=== PATIENT | male | born 1930 | race Caucasian/White ===

== ENCOUNTER 2017-07-16 10:29 | Inpatient (IN) | payer MEDICARE, BC ==
[2017-07-16] MEDS ORDERED: Polyethylene Glycol 3350 Powder 17 GM Packet PO PRN (11:34)
--- NOTE | 2017-07-16 11:56 | PCM.HP ---
H&P History of Present Illness - General Date of Service: 07/16/17 Admit Problem/Dx: Admission Diagnosis/Problem Admission Diagnosis/Problem Acute systolic congestive heart failure Source of Information: Patient, Family, Old Records, Provider History Limitations: Reports: No Limitations - History of Present Illness Initial Comments - Free Text/Narative: Patient is an 87-year-old male remarkably independent who had a heart attack back in 2016 and has had shortness of breath since then. Over the last couple of months his exertional shortness of breath and at rest shortness of breath have worsened considerably. Over the last month he has had a productive cough which over the last 2 days has grown worse with white sputum. He's had no fevers , no chills, no sweats. His cough actually is better today than yesterday. He's been treated with a course of azithromycin and a course of Levaquin in the last month. He has good days and bad days. He [facility] but over the last month has been doctoring at [facility] with a nurse practitioner and has a baseline abnormal chest x-ray. He's had episodes of dizziness and orthostatic hypotension. When he wakes up in the morning he feels pretty good but after taking his pills his blood pressure would drop to systolic blood pressures in the 70s and 80s and so they've been making adjustments to his medications at the clinic. He's had lisinopril stopped, Toprol-XL decreased from 50-12.5 mg daily, and has decreased his Lasix from 80 to 40 twice a day. He was in the clinic again this morning with similar complaints and was tachycardic with heart rates ranging from 100 to 140s and I was contacted by the mid-level provider who saw him and asked to admit him for further workup and evaluation of his shortness of breath. Because the patient doctors both at the [facility] and recently at [facility] our medication list is incorrect as well as the problem list. We are working on getting records from the [facility]. Past medical history: (May be incomplete pending records from [facility]) History of ST elevation myocardial infarction in February 2015 Hx chronic atrial fibrillation, taken off anticoagulation sometime in the past couple of years and only on aspirin daily due to bleeding risk and the patient' s refusal for transfusions due to his scientology beliefs. Severe systolic congestive heart failure with echo in the past showing 20% EF per patient and son. April 2015 echo in [facility] chart shows ejection fraction of 20% and severe diffuse hypokinesis. Hypothyroidism DM 2, diet controlled. CKD stage III. Left carotid artery partial occlusion, unknown severity, last ultrasound result here from 2013 showed moderate elevation of peak systolic velocity of external carotid arteries bilaterally and marked atherosclerotic vascular disease change predominantly distal common carotid bulb regions and proximal internal carotid arteries bilaterally. [facility] would not do the patient's hernia repair without first doing carotid endarterectomy. Patient refused because of concerns of stroke. Right inguinal hernia. BPH. Social Hx: Patient is a Jain and will not accept blood transfusion. He doctors at the [facility] about once a month and locally has been doctoring this month with [facility]. He would like to continue to follow with [facility] on discharge. He is a from the [place], smoked for 1 year in his lifetime and quit, drinks 1 ounce of whiskey a day. He is and he and his live in [place]. His son is here with him today. Family Hx: Patient's mother from stomach cancer age of 37. The patient's father at 67 from prostate cancer. The patient was one of 6 more days and his 5 brothers have all . All of them had heart disease and bypass surgery , and one was on kidney dialysis. - Related Data Home Medications: Home Meds Aspirin [Halfprin] 81 mg PO DAILY 07/16/17 [History] Furosemide [Lasix] 40 mg PO BID 07/16/17 [History] Lisinopril 2.5 mg PO BEDTIME 07/16/17 [History] Metoprolol Succinate [Toprol Xl] 12.5 mg PO BEDTIME 07/16/17 [History] Omeprazole 20 mg PO DAILY 07/16/17 [History] Sildenafil Citrate [Sildenafil] 100 mg PO ASDIRECTED PRN 07/16/17 [History] Tamsulosin [Flomax] 0.8 mg PO BEDTIME 07/16/17 [History] H&P Review of Systems - Review of Systems: Review Of Systems: See Below General: Reports: No Symptoms HEENT: Reports: No Symptoms Pulmonary: Reports: Shortness of Breath, Cough, Sputum Cardiovascular: Reports: Dyspnea on Exertion, Orthopnea, Lightheadedness, Blood Pressure Problem Gastrointestinal: Reports: No Symptoms Genitourinary: Reports: Other (chronic slow stream, [facility] Musculoskeletal: Reports: No Symptoms Skin: Reports: Bruising Psychiatric: Reports: No Symptoms Neurological: Reports: Dizziness (with position changes.) Hematologic/Lymphatic: Reports: No Symptoms Immunologic: Reports: No Symptoms Exam - Exam Exam: See Below - Exam General: Alert, Oriented, Cooperative HEENT: PERRLA, Conjunctiva Clear, Mucosa Moist & [place], Posterior Pharynx Clear Neck: Supple Lungs: Decreased Breath Sounds, Crackles, Rhonchi Cardiovascular: Irregular Rhythm, Tachycardia GI/Abdominal Exam: Normal Bowel Sounds, Soft, Non-Tender, No Distention Back Exam: Normal Inspection Extremities: Pedal Edema (1+ edema.) Skin: Warm, Dry, Intact Neuro Extensive - Mental Status: Alert, Oriented x3, Normal Mood/Affect, Normal Cognition - Patient Data Lab Results Last 24 hrs: At [facility], labs and x-ray were done and chest x-ray to my reading appears unchanged from a month ago. It's grossly abnormal with what looks like a large right-sided pleural effusion, small left-sided pleural effusion, fibrosis changes. Essentially [facility] readings since 2017 show a significant increased pleural parenchymal changes at the left lung base and continue pleural parenchymal changes at the right lung base, with a differential being pneumonia, pleuritis, CHF, pulmonary emboli, mesothelioma. Also calcified plaques compatible with asbestosis. Essentially nondiagnostic. Patient's baseline creatinine is about 1.7-1.8 and today glucose was 182, sodium 134, potassium 4.3, chloride 95, CO2 28, BUN 41, creatinine 1.8, calcium 9.0, white count 7.1, hemoglobin 11.6 which is at the patient's typical baseline , platelets 208. - Problem List (1) SOB (shortness of breath) SNOMED Code(s): 901046655 ICD Code: R06.02 - SHORTNESS OF BREATH Status: Acute Current Visit: Yes Problem Details: Worsening over last month, failed 2 courses of outpatient antibiotic therapy. Multifactorial, unclear etiology at this time. I'm going to get an EKG, order an echo, get a CT scan of the chest to see how much fluid is present. (2) Chronic systolic heart failure SNOMED Code(s): 081148379 ICD Code: I50.22 - CHRONIC SYSTOLIC (CONGESTIVE) HEART FAILURE Status: Acute Current Visit: Yes Problem Details: We will repeat echo tomorrow. (3) Atrial fibrillation with RVR SNOMED Code(s): 266837830239788 ICD Code: I48.91 - UNSPECIFIED ATRIAL FIBRILLATION Status: Acute Current Visit: Yes Problem Details: Digoxin loading, then daily. Discussed benefit of digoxin which is just patients feel better in CHF and rate control without hypotension, but has no mortality benefit and may actually shorten life compared to beta blockers. Patient and son aware. (4) CKD stage 3 due to type 2 diabetes mellitus SNOMED Code(s): 405102705482 ICD Code: E11.22 - TYPE 2 DIABETES MELLITUS W DIABETIC CHRONIC KIDNEY DISEASE ; N18.3 - CHRONIC KIDNEY DISEASE, STAGE 3 (MODERATE) Status: Acute Current Visit: Yes Problem Details: Monitor daily. Will need to be cautious with digoxin. (5) Diabetes mellitus type 2 in nonobese SNOMED Code(s): 980378213 ICD Code: E11.9 - TYPE 2 DIABETES MELLITUS WITHOUT COMPLICATIONS Status: Acute Current Visit: Yes Problem Details: QID blood sugar checks. (6) Hypothyroid SNOMED Code(s): 65845022 ICD Code: E03.9 - HYPOTHYROIDISM, UNSPECIFIED Status: Acute Current Visit : Yes Problem Details: Continue outpatient dose. (7) BPH (benign prostatic hyperplasia) SNOMED Code(s): 061493864 ICD Code: N40.0 - BENIGN PROSTATIC HYPERPLASIA WITHOUT LOWER URINRY TRACT SYMP Status: Acute Current Visit: Yes Problem Details: With CKD, watch for signs of obstructive uropathy as can worsen renal function. (8) DVT prophylaxis SNOMED Code(s): 198838465, 276803375 ICD Code: HXD5306 - Status: Acute Current Visit: Yes Problem Details: Lovenox, SCDs, ambulation as tolerated. Problem List Initiated/Reviewed/Updated: Yes Orders Last 24hrs: Active Orders 24 hr Category Date Time Status Patient Status [ADT] Routine ADT 07/16/17 11:34 Ordered Blood Glucose Check, Bedside [RC] QIDACANDBED Care 07/16/17 11:34 Ordered Cardiac Monitoring [RC] CONTINUOUS Care 07/16/17 11:36 Ordered Height and Weight [RC] DAILY Care 07/16/17 11:34 Ordered Intake and Output [RC] QSHIFT Care 07/16/17 11:36 Ordered Notify Provider Vital Signs [RC] ASDIRECTED Care 07/16/17 11:36 Ordered Oxygen Therapy [RC] PRN Care 07/16/17 11:34 Ordered Pulse Oximetry [RC] PRN Care 07/16/17 11:36 Ordered RT Aerosol Therapy [RC] ASDIRECTED Care 07/16/17 11:38 Ordered Up With Assistance [RC] ASDIRECTED Care 07/16/17 11:34 Ordered VTE/DVT Education [RC] Per Unit Routine Care 07/16/17 11:34 Ordered Vital Signs [RC] Q4H Care 07/16/17 11:34 Ordered Respiratory Care Assess and Treatment [CONS] Routine Cons 07/16/17 11:34 Ordered 2 Gram Sodium Diet [DIET] Diet 07/16/17 Breakfast Ordered Chest wo Cont [CT] Routine Exams 07/16/17 11:39 Ordered CBC WITH AUTO DIFF [HEME] Stat Lab 07/16/17 11:34 Ordered COMPREHENSIVE METABOLIC PN,CMP [CHEM] Stat Lab 07/16/17 11:34 Ordered CULTURE SPUTUM + SMEAR [RM] Stat Lab 07/16/17 11:34 Ordered MAGNESIUM [CHEM] Stat Lab 07/16/17 11:34 Ordered PHOSPHORUS [CHEM] Stat Lab 07/16/17 11:34 Ordered TROPONIN I [CHEM] Stat Lab 07/16/17 11:34 Ordered Acetaminophen [Tylenol] Med 07/16/17 11:34 Ordered 650 mg PO Q4H PRN Albuterol [Proventil Neb Soln] Med 07/16/17 11:34 Ordered 2.5 mg NEB Q2H PRN Enoxaparin [Lovenox] Med 07/16/17 11:45 Ordered 30 mg SUBCUT Q24H Polyethylene Glycol 3350 [MiraLAX] Med 07/16/17 11:34 Ordered 17 gm PO DAILY PRN Sodium Chloride 0.9% [Saline Flush] Med 07/16/17 11:34 Ordered 10 ml FLUSH ASDIRECTED PRN Peripheral IV Insertion Adult [OM.PC] Routine Oth 07/16/17 11:34 Ordered Sequential Compression Device [OM.PC] Per Unit Routine Oth 07/16/17 11:37 Ordered Resuscitation Status Routine Resus Stat 07/16/17 11:34 Ordered Assessment/Plan Comment:: Discussed w/pt, son. If heart were to stop, would not want CPR. Would not want intubation even for short treatment for potentially reversible condition. Thus patient is DNR/DNI.
[2017-07-16] MEDS ORDERED: Digoxin 500 MCG/2 ML Amp IVPUSH ONE (12:07)
[2017-07-16] MEDS: Sodium Chloride 0.9% 10 ML Syringe FLUSH PRN ×3 (14:02→17:56)
[2017-07-16] MEDS: Enoxaparin 30 MG/0.3 ML Syringe SUBCUT SCH (14:53)
[2017-07-16] MEDS: Tamsulosin 0.4 MG Cap.ER PO SCH (14:55)
--- NOTE | 2017-07-16 15:00 | CT ---
INDICATION: Shortness of breath, abnormal chest x-ray. CT CHEST WITHOUT CONTRAST: Spiral 2.5 mm axial sections were obtained through the chest with sagittal and coronal reconstructions without contrast. Examination was obtained 07/16/2017 - no comparisons. Total exam DLP = 498.30 mGy-cm. Moderate mediastinal lymphadenopathy is noted with a precarinal node measuring 19 mm and numerous nodes in sub 10 mm size range. Aortopulmonary window node was 17 mm with another more posteriorly measuring 15 mm. No definite mediastinal mass was identified. Calcifications are noted in the brachiocephalic vessels, the aorta, and in coronary arteries. The heart is enlarged. No pericardial effusion was seen. Bilateral pleural effusions are noted, large on the right and moderate on the left, with atelectatic and/or consolidated lung in the lower lobes to a greater extent on the right than left. There also appears to be consolidation in the right upper lobe and left upper lobe, on the left mostly at the lingula, and on the right relatively minimal with a greater amount of infiltrate in the middle lobe on the right. Findings may be on the basis of pneumonia and pleuritis. There is a moderately large fixed hiatal hernia, which could predispose to aspiration, which could be present with these findings. Also noted is calcified pleural plaque on the left in the upper lobe area anteriorly and also on the right to a lesser extent, which may be on the basis of process such as asbestosis. This should be correlated clinically. Some of the densities present are likely to be fibrotic in nature additionally. The upper abdomen included on the study showed evidence of renal cortical scarring to a greater extent on the right with what appears to be a relatively diminutive right kidney. IMPRESSION: 1. Bibasilar pleural parenchymal changes with relatively large right pleural effusion and a greater amount of consolidated lung and/or atelectatic lung on the right than on the left. Although pneumonia and pleuritis is felt to be most likely with this appearance, at least some of these changes may be on the basis of chronic inflammatory disease and/or fibrosis. 2. ASHD with cardiomegaly. 3. Fairly large fixed hiatal hernia. 4. Probable asbestosis. 5. Renal cortical scarring, right greater than left. MTDD
[2017-07-16] MEDS ORDERED: Furosemide 40 MG/4 ML VIAL IVPUSH SCH (17:00)
[2017-07-16] MEDS: Furosemide 40 MG/4 ML VIAL IVPUSH SCH (17:54)
[2017-07-16] MEDS: Metoprolol Succinate 25 MG Tab.ER PO SCH ×2 (18:27→21:10)
[2017-07-16] MEDS ORDERED: Digoxin 125 MCG Tab PO ONE (20:00)
[2017-07-16] MEDS ORDERED: Metoprolol Succinate 25 MG Tab.ER PO SCH (21:00)
[2017-07-16] MEDS: Lisinopril 2.5 MG Tab PO SCH (21:09)
[2017-07-17] MEDS: Pantoprazole 40 MG Tab.CR PO SCH (06:18)
[2017-07-17] MEDS: Levothyroxine 150 MCG Tab PO SCH (06:18)
[2017-07-17] MEDS: Tamsulosin 0.4 MG Cap.ER PO SCH (08:15)
[2017-07-17] MEDS: Aspirin 81 MG Tab.EC PO SCH (08:16)
[2017-07-17] MEDS: Digoxin 125 MCG Tab PO SCH (08:16)
[2017-07-17] MEDS: Furosemide 40 MG/4 ML VIAL IVPUSH SCH ×2 (09:26→14:20)
[2017-07-17] MEDS: Sodium Chloride 0.9% 10 ML Syringe FLUSH PRN ×2 (09:30→12:23)
--- NOTE | 2017-07-17 11:13 | PCM.PN ---
- General Info Date of Service: 07/17/17 Admission Dx/Problem (Free Text): This 87-year-old male patient states he is feeling better today. He is not dizzy and his shortness of breath is improved. He said little leg swelling but that's improved also. He denies chest pain, fevers, chills. Has had some cough. He was treated for pneumonia one month ago. Chest x-ray in the clinic red as possible pneumonitis versus residual pneumonia with no change. He has a history of systolic CHF with ejection fraction 20 % per history. - Patient Data Vitals - Most Recent: Last Vital Signs Temp 97.8 F 07/17/17 07:50 Pulse 78 07/17/17 08:16 Resp 15 07/17/17 07:50 BP 140/60 07/17/17 07:50 Pulse Ox 96 07/17/17 07:50 Weight - Most Recent: 170 lb 9.6 oz I&O - Last 24 Hours: Intake & Output 07/16/17 07/17/17 07/17/17 22:59 06:59 14:59 Intake Total 200 250 Output Total 350 275 Balance -150 -275 250 Lab Results Last 24 Hours: Laboratory Results - last 24 hr 07/16/17 07/16/17 07/16/17 Range/Units 11:45 11:45 11:45 WBC 7.0 (4.5-12.0) X10-3/uL RBC 3.73 L (4.30-5.75) x10(6)uL Hgb 11.5 (11.5-15.5) g/dL Hct 33.6 (30.0-51.3) % MCV 89.9 (80-96) fL MCH 30.7 (27.7-33.6) pg MCHC 34.2 (32.2-35.4) g/dL RDW 14.9 (11.5-15.5) % Plt Count 213 (125-369) X10(3)uL MPV 7.7 (7.4-10.4) fL Neut % (Auto) 81.8 (46-82) % Lymph % (Auto) 7.2 L (13-37) % [place] % (Auto) 8.9 (4-12) % Eos % (Auto) 2 (1.0-5.0) % Baso % (Auto) 1 (0-2) % Neut # (Auto) 5.8 (1.6-8.3) # Lymph # (Auto) 0.5 L (0.6-5.0) # [place] # (Auto) 0.6 (0.0-1.3) # Eos # (Auto) 0.1 (0.0-0.8) # Baso # (Auto) 0.0 (0.0-0.2) # Sodium 136 (135-145) mmol/L Potassium 4.1 (3.5-5.3) mmol/L Chloride 97 L (100-110) mmol/L Carbon Dioxide 29 (21-32) mmol/L BUN 41 H (7-18) mg/dL Creatinine 1.8 H (0.70-1.30) mg/dL Est Cr Clr Drug Dosing TNP Estimated GFR (MDRD) 36 L (>60) BUN/Creatinine Ratio 22.8 H (9-20) Glucose 113 (80-116) mg/dL POC Glucose (80-116) mg/dL Calcium 9.1 (8.6-10.2) mg/dL Phosphorus 3.7 (2.6-4.6) mg/dL Magnesium 2.0 (1.8-2.5) mg/dL Total Bilirubin 0.5 (0.1-1.3) mg/dL AST 19 (5-25) IU/L ALT 17 (12-36) U/L Alkaline Phosphatase 94 (56-112) IU/L Troponin I < 0.017 L (<0.017-0.056) ng/mL Total Protein 7.6 (6.0-8.0) g/dL Albumin 3.1 L (3.2-4.6) g/dL Globulin 4.5 g/dL Albumin/Globulin Ratio 0.7 Digoxin (0.9-2.0) ng/mL 07/16/17 07/16/17 07/17/17 Range/Units 19:01 21:55 06:12 WBC (4.5-12.0) X10-3/uL RBC (4.30-5.75) x10(6)uL Hgb (11.5-15.5) g/dL Hct (30.0-51.3) % MCV (80-96) fL MCH (27.7-33.6) pg MCHC (32.2-35.4) g/dL RDW (11.5-15.5) % Plt Count (125-369) X10(3)uL MPV (7.4-10.4) fL Neut % (Auto) (46-82) % Lymph % (Auto) (13-37) % [place] % (Auto) (4-12) % Eos % (Auto) (1.0-5.0) % Baso % (Auto) (0-2) % Neut # (Auto) (1.6-8.3) # Lymph # (Auto) (0.6-5.0) # [place] # (Auto) (0.0-1.3) # Eos # (Auto) (0.0-0.8) # Baso # (Auto) (0.0-0.2) # Sodium (135-145) mmol/L Potassium (3.5-5.3) mmol/L Chloride (100-110) mmol/L Carbon Dioxide (21-32) mmol/L BUN (7-18) mg/dL Creatinine (0.70-1.30) mg/dL Est Cr Clr Drug Dosing Estimated GFR (MDRD) (>60) BUN/Creatinine Ratio (9-20) Glucose (80-116) mg/dL POC Glucose 222 H 204 H (80-116) mg/dL Calcium (8.6-10.2) mg/dL Phosphorus (2.6-4.6) mg/dL Magnesium (1.8-2.5) mg/dL Total Bilirubin (0.1-1.3) mg/dL AST (5-25) IU/L ALT (12-36) U/L Alkaline Phosphatase (56-112) IU/L Troponin I (<0.017-0.056) ng/mL Total Protein (6.0-8.0) g/dL Albumin (3.2-4.6) g/dL Globulin g/dL Albumin/Globulin Ratio Digoxin 0.9 (0.9-2.0) ng/mL 18 07/17/17 Range/Units 06:12 06:12 WBC 7.7 (4.5-12.0) X10-3/uL RBC 3.59 L (4.30-5.75) x10(6)uL Hgb 10.7 L (11.5-15.5) g/dL Hct 32.6 (30.0-51.3) % MCV 90.8 (80-96) fL MCH 29.8 (27.7-33.6) pg MCHC 32.9 (32.2-35.4) g/dL RDW 14.9 (11.5-15.5) % Plt Count 190 (125-369) X10(3)uL MPV 8.0 (7.4-10.4) fL Neut % (Auto) 81.0 (46-82) % Lymph % (Auto) 9.4 L (13-37) % [place] % (Auto) 8.9 (4-12) % Eos % (Auto) 0 L (1.0-5.0) % Baso % (Auto) 0 (0-2) % Neut # (Auto) 6.3 (1.6-8.3) # Lymph # (Auto) 0.7 (0.6-5.0) # [place] # (Auto) 0.7 (0.0-1.3) # Eos # (Auto) 0.0 (0.0-0.8) # Baso # (Auto) 0.0 (0.0-0.2) # Sodium 135 (135-145) mmol/L Potassium 4.1 (3.5-5.3) mmol/L Chloride 97 L (100-110) mmol/L Carbon Dioxide 31 (21-32) mmol/L BUN 46 H (7-18) mg/dL Creatinine 2.0 H* (0.70-1.30) mg/dL Est Cr Clr Drug Dosing 28.48 Estimated GFR (MDRD) 32 L (>60) BUN/Creatinine Ratio 23.0 H (9-20) Glucose 125 H (80-116) mg/dL POC Glucose (80-116) mg/dL Calcium 8.9 (8.6-10.2) mg/dL Phosphorus (2.6-4.6) mg/dL Magnesium (1.8-2.5) mg/dL Total Bilirubin 0.6 (0.1-1.3) mg/dL AST 20 (5-25) IU/L ALT 15 D (12-36) U/L Alkaline Phosphatase 84 (56-112) IU/L Troponin I (<0.017-0.056) ng/mL Total Protein 7.1 (6.0-8.0) g/dL Albumin 2.8 L (3.2-4.6) g/dL Globulin 4.3 g/dL Albumin/Globulin Ratio 0.7 Digoxin (0.9-2.0) ng/mL [facility] Results Last 24 Hours: Microbiology 07/16/17 20:35 Gram Stain - Final Sputum - Induced Med Orders - Current: Current Medications Acetaminophen (Tylenol) 650 mg PO Q4H PRN PRN Reason: Pain (Mild 1-3)/fever Albuterol (Proventil Neb Soln) 2.5 mg NEB Q2H PRN PRN Reason: Shortness Of Breath/wheezing Aspirin (Halfprin) 81 mg PO DAILY [facility] Last Admin: 07/17/17 08:16 Dose: 81 mg Digoxin (Lanoxin) 125 mcg PO DAILY [facility] Last Admin: 07/17/17 08:16 Dose: 125 mcg Enoxaparin Sodium (Lovenox) 30 mg SUBCUT Q24H [facility] Last Admin: 07/16/17 14:53 Dose: 30 mg Furosemide (Lasix) 40 mg IVPUSH BIDDIURETIC [facility] Stop: 07/17/17 14:01 Last Admin: 07/17/17 09:26 Dose: 40 mg Levothyroxine Sodium (Levothyroxine) 150 mcg PO DAILY@0600 [facility] Last Admin: 07/17/17 06:18 Dose: 150 mcg Lisinopril (Prinivil) 2.5 mg PO BEDTIME [facility] Last Admin: 07/16/17 21:09 Dose: 2.5 mg Metoprolol Succinate (Toprol Xl) 12.5 mg PO BEDTIME [facility] Last Admin: 07/16/17 21:10 Dose: Not Given Pantoprazole Sodium (Protonix) 40 mg PO DAILY@0600 [facility] Last Admin: 07/17/17 06:18 Dose: 40 mg Polyethylene Glycol (Miralax) 17 gm PO DAILY PRN PRN Reason: Constipation Sodium Chloride (Saline Flush) 10 ml FLUSH ASDIRECTED PRN PRN Reason: Keep Vein Open Last Admin: 07/17/17 09:30 Dose: 10 ml Tamsulosin HCl (Flomax) 0.8 mg PO DAILY [facility] Last Admin: 07/17/17 08:15 Dose: 0.8 mg Discontinued Medications Digoxin (Lanoxin) 250 mcg IVPUSH ONETIME ONE Stop: 07/16/17 12:08 Last Admin: 07/16/17 14:43 Dose: 250 mcg Digoxin (Lanoxin) 125 mcg PO ONETIME ONE Stop: 07/16/17 20:01 Last Admin: 07/16/17 21:09 Dose: 125 mcg Metoprolol Succinate (Toprol Xl) 12.5 mg PO BEDTIME [facility] - Exam General: Alert, Oriented, Cooperative Neck: Supple Lungs: Clear to Auscultation, Normal Respiratory Effort. No: Decreased Breath Sounds, Crackles, Rales, Rhonchi Cardiovascular: Regular Rate, Irregular Rhythm Extremities: Pedal Edema - Problem List & Annotations (1) Palliative care status SNOMED Code(s): 226402316 Code(s): Z51.5 - ENCOUNTER FOR PALLIATIVE CARE Status: Acute Current Visit: Yes (2) Atrial fibrillation with RVR SNOMED Code(s): 677122253660801 Code(s): I48.91 - UNSPECIFIED ATRIAL FIBRILLATION Status: Acute Current Visit: Yes Annotation/Comment:: Digoxin loading, then daily. Discussed benefit of digoxin which is just patients feel better in CHF and rate control without hypotension, but has no mortality benefit and may actually shorten life compared to beta blockers. Patient and son aware. (3) Chronic systolic heart failure SNOMED Code(s): 262374868 Code(s): I50.22 - CHRONIC SYSTOLIC (CONGESTIVE) HEART FAILURE Status: Acute Current Visit: Yes Annotation/Comment:: We will repeat echo tomorrow. - Problem List Review Problem List Initiated/Reviewed/Updated: Yes - Plan Plan:: 1. Continue IV Lasix. 2. Restart low-dose lisinopril. 3. [facility] not [facility]. Blood sugar running a little high so we'll check an A1c. 4. Up with assist. 5. PT/OT consult. 6. BNP in the clinic was 663 with normals of 0-100 7. Sodium restricted diet. 8. Echo today 9. Palliative care.
[2017-07-17] MEDS ORDERED: Levofloxacin/Dextrose 5%-Water 150 ML IV SCH (11:30)
[2017-07-17] MEDS: Enoxaparin 30 MG/0.3 ML Syringe SUBCUT SCH (13:31)
[2017-07-17] MEDS: Albuterol 0.083% 2.5 MG/3 ML Neb Soln NEB PRN (14:30)
[2017-07-17] MEDS: Lisinopril 2.5 MG Tab PO SCH (20:54)
[2017-07-17] MEDS: Metoprolol Succinate 25 MG Tab.ER PO SCH (20:54)
[2017-07-17] MEDS: Magnesium Oxide 400 MG Tab PO SCH (20:55)
[2017-07-18] MEDS: Levothyroxine 150 MCG Tab PO SCH (05:27)
[2017-07-18] MEDS: Pantoprazole 40 MG Tab.CR PO SCH (05:27)
[2017-07-18] MEDS: Furosemide 20 MG Tab PO SCH ×2 (09:44→13:45)
[2017-07-18] MEDS: Tamsulosin 0.4 MG Cap.ER PO SCH (09:46)
[2017-07-18] MEDS: Aspirin 81 MG Tab.EC PO SCH (09:46)
[2017-07-18] MEDS: Digoxin 125 MCG Tab PO SCH (09:47)
--- NOTE | 2017-07-18 10:05 | PCM.PN ---
- General Info Date of Service: 07/18/17 Admission Dx/Problem (Free Text): Patient states he feels better today. He says a little short of breath when he walks. He has no chest pain, fevers, chills or leg swelling. He does have a dry cough. His Toprol and lisinopril held his blood pressure was low. - Patient Data Vitals - Most Recent: Last Vital Signs Temp 98.1 F 07/17/17 23:54 Pulse 67 07/18/17 09:47 Resp 18 07/17/17 23:54 BP 103/61 07/17/17 23:54 Pulse Ox 96 07/17/17 23:54 Weight - Most Recent: 171 lb 3.2 oz I&O - Last 24 Hours: Intake & Output 07/17/17 07/18/17 07/18/17 22:59 06:59 14:59 Intake Total 200 250 Output Total 830 550 Balance -630 -300 Lab Results Last 24 Hours: Laboratory Results - last 24 hr 07/17/17 07/17/17 07/17/17 Range/Units 06:12 06:13 12:07 Sodium (135-145) mmol/L Potassium (3.5-5.3) mmol/L Chloride (100-110) mmol/L Carbon Dioxide (21-32) mmol/L BUN (7-18) mg/dL Creatinine (0.70-1.30) mg/dL Est Cr Clr Drug Dosing mL/min Estimated GFR (MDRD) (>60) BUN/Creatinine Ratio (9-20) Glucose (80-116) mg/dL POC Glucose 125 H 116 (80-116) mg/dL Hemoglobin A1c 6.4 H (4.5-6.2) % Calcium (8.6-10.2) mg/dL Digoxin (0.9-2.0) ng/mL 07/17/17 07/17/17 07/18/17 Range/Units 17:23 20:58 06:05 Sodium (135-145) mmol/L Potassium (3.5-5.3) mmol/L Chloride (100-110) mmol/L Carbon Dioxide (21-32) mmol/L BUN (7-18) mg/dL Creatinine (0.70-1.30) mg/dL Est Cr Clr Drug Dosing mL/min Estimated GFR (MDRD) (>60) BUN/Creatinine Ratio (9-20) Glucose (80-116) mg/dL POC Glucose 89 129 H 111 (80-116) mg/dL Hemoglobin A1c (4.5-6.2) % Calcium (8.6-10.2) mg/dL Digoxin (0.9-2.0) ng/mL 07/18/17 07/18/17 Range/Units 06:30 06:30 Sodium 134 L (135-145) mmol/L Potassium 4.2 (3.5-5.3) mmol/L Chloride 96 L (100-110) mmol/L Carbon Dioxide 32 (21-32) mmol/L BUN 49 H (7-18) mg/dL Creatinine 1.9 H (0.70-1.30) mg/dL Est Cr Clr Drug Dosing 22.04 mL/min Estimated GFR (MDRD) 34 L (>60) BUN/Creatinine Ratio 25.8 H (9-20) Glucose 121 H (80-116) mg/dL POC Glucose (80-116) mg/dL Hemoglobin A1c (4.5-6.2) % Calcium 9.0 (8.6-10.2) mg/dL Digoxin 0.8 L (0.9-2.0) ng/mL [facility] Results Last 24 Hours: Microbiology 07/16/17 20:35 Gram Stain - Final Sputum - Induced Sputum Culture - Preliminary Gram Positive Cocci Med Orders - Current: Current Medications Acetaminophen (Tylenol) 650 mg PO Q4H PRN PRN Reason: Pain (Mild 1-3)/fever Albuterol (Proventil Neb Soln) 2.5 mg NEB Q2H PRN PRN Reason: Shortness Of Breath/wheezing Last Admin: 07/17/17 14:30 Dose: 2.5 mg Aspirin (Halfprin) 81 mg PO DAILY [facility] Last Admin: 07/18/17 09:46 Dose: 81 mg Digoxin (Lanoxin) 125 mcg PO DAILY [facility] Last Admin: 07/18/17 09:47 Dose: 125 mcg Enoxaparin Sodium (Lovenox) 30 mg SUBCUT Q24H [facility] Last Admin: 07/17/17 13:31 Dose: 30 mg Furosemide (Lasix) 60 mg PO BIDDIURETIC [facility] Last Admin: 07/18/17 09:44 Dose: 60 mg Levofloxacin/Dextrose (Levaquin In D5w 750 Mg/150 Ml) 150 mls @ 100 mls/hr IV Q48H [facility] Last Admin: 07/17/17 12:19 Dose: 100 mls/hr Levothyroxine Sodium (Levothyroxine) 150 mcg PO DAILY@0600 [facility] Last Admin: 07/18/17 05:27 Dose: 150 mcg Lisinopril (Prinivil) 2.5 mg PO BEDTIME [facility] Last Admin: 07/17/17 20:54 Dose: Not Given Magnesium Oxide (Magnesium Oxide) 400 mg PO BEDTIME [facility] Last Admin: 07/17/17 20:55 Dose: 400 mg Metoprolol Succinate (Toprol Xl) 12.5 mg PO BEDTIME [facility] Last Admin: 07/17/17 20:54 Dose: Not Given Pantoprazole Sodium (Protonix) 40 mg PO DAILY@0600 [facility] Last Admin: 07/18/17 05:27 Dose: 40 mg Polyethylene Glycol (Miralax) 17 gm PO DAILY PRN PRN Reason: Constipation Sodium Chloride (Saline Flush) 10 ml FLUSH ASDIRECTED PRN PRN Reason: Keep Vein Open Last Admin: 07/17/17 12:23 Dose: 10 ml Tamsulosin HCl (Flomax) 0.8 mg PO DAILY [facility] Last Admin: 07/18/17 09:46 Dose: 0.8 mg Discontinued Medications Digoxin (Lanoxin) 250 mcg IVPUSH ONETIME ONE Stop: 07/16/17 12:08 Last Admin: 07/16/17 14:43 Dose: 250 mcg Digoxin (Lanoxin) 125 mcg PO ONETIME ONE Stop: 07/16/17 20:01 Last Admin: 07/16/17 21:09 Dose: 125 mcg Furosemide (Lasix) 40 mg IVPUSH BIDDIURETIC [facility] Stop: 07/17/17 14:01 Last Admin: 07/17/17 14:20 Dose: 40 mg Metoprolol Succinate (Toprol Xl) 12.5 mg PO BEDTIME [facility] - Exam General: Alert, Oriented, Cooperative Neck: Supple Lungs: Normal Respiratory Effort, Crackles, Rales (Right base) Cardiovascular: Irregular Rhythm, Tachycardia (Mild) Extremities: No Pedal Edema - Problem List & Annotations (1) Palliative care status SNOMED Code(s): 282165297 Code(s): Z51.5 - ENCOUNTER FOR PALLIATIVE CARE Status: Acute Current Visit: Yes (2) Atrial fibrillation with RVR SNOMED Code(s): 321527629939840 Code(s): I48.91 - UNSPECIFIED ATRIAL FIBRILLATION Status: Acute Current Visit: Yes Annotation/Comment:: Digoxin loading, then daily. Discussed benefit of digoxin which is just patients feel better in CHF and rate control without hypotension, but has no mortality benefit and may actually shorten life compared to beta blockers. Patient and son aware. (3) Chronic systolic heart failure SNOMED Code(s): 602168147 Code(s): I50.22 - CHRONIC SYSTOLIC (CONGESTIVE) HEART FAILURE Status: Acute Current Visit: Yes Annotation/Comment:: We will repeat echo tomorrow. (4) Pneumonia SNOMED Code(s): 982519853 Code(s): J18.9 - PNEUMONIA, UNSPECIFIED ORGANISM Status: Acute Current Visit: Yes (5) Pleural effusion, right SNOMED Code(s): 93164854 Code(s): J90 - PLEURAL EFFUSION, NOT ELSEWHERE CLASSIFIED Status: Acute Current Visit: Yes - Problem List Review Problem List Initiated/Reviewed/Updated: Yes - My Orders Last 24 Hours: My Active Orders 07/17/17 11:30 Levofloxacin/Dextrose 5%-Water [Levaquin in D5W 750 MG/150 ML] 150 ml IV Q48H 07/17/17 16:05 Consult to Physician [CONS] Routine 07/17/17 16:06 Notify Provider Consults [RC] ASDIRECTED 07/17/17 21:00 Magnesium Oxide 400 mg PO BEDTIME 07/18/17 08:00 Furosemide [Lasix] 60 mg PO BIDDIURETIC 07/18/17 08:02 Chest 2V [CR] Routine - Plan Plan:: 1. Start IV antibiotics. Levaquin 2. Consult surgery for possible drainage of right pleural effusion. 3. Start by mouth Lasix to 60 mg twice a day. 4. Restart his beta christofer and hold SOLO inhibitor for now. 5. Ambulate frequently. 6. Ambulate and up in chair. 7. Stop SCD by pt request.
[2017-07-18] MEDS: Metoprolol Succinate 25 MG Tab.ER PO SCH (11:08)
--- NOTE | 2017-07-18 12:05 | PCM.OPNOTE ---
- General Post-Op/Procedure Note Date of Surgery/Procedure: 07/18/17 Operative Procedure(s): Right Thoracentesis Findings: Right Pleural Effusion - 700cc of serous but bloody fluid Pre Op Diagnosis: Right Pleural effusion Post-Op Diagnosis: Same Anesthesia Technique: Local Primary Surgeon: Everton Powers Output, Urine Amount: 0 EBL in mLs: 0 Complications: None Condition: Good Free Text/Narrative:: Intake & Output 07/17/17 07/18/17 07/18/17 22:59 06:59 14:59 Intake Total 200 250 Output Total 830 550 Balance -630 -300
[2017-07-18] MEDS: Albuterol 0.083% 2.5 MG/3 ML Neb Soln NEB PRN (12:14)
[2017-07-18] MEDS: Acetaminophen 325 MG Tab PO PRN (13:42)
[2017-07-18] MEDS: Enoxaparin 30 MG/0.3 ML Syringe SUBCUT SCH (13:44)
[2017-07-18] MEDS ORDERED: Acetaminophen/Codeine 300-30 MG Tab PO PRN (18:15)
--- NOTE | 2017-07-18 18:16 | PROC ---
ADMISSION DATE: 07/18/2017 REFERRING PHYSICIAN: Dr. Sommers. PROCEDURE PERFORMED: RIGHT THORACENTESIS. HISTORY OF PRESENT ILLNESS: This 87-year-old male is admitted with shortness of breath and has been diagnosed with pneumonia. A CT scan and chest x-ray have identified a pleural effusion which is a small amount on the left, but a larger amount on the right. The patient is having some degree of shortness of breath especially with exertion and therapeutic thoracentesis is planned of the larger right pleural effusion to assist in his comfort of breathing. The patient is examined, found to have percussion dullness in the lower aspect of both lungs and no contraindication to proceeding with the thoracentesis is identified. The procedure was discussed with the patient. Risks such as but not limited to bleeding and lung injury are reviewed. The patient is a [employer] and again maintains that he will not accept a blood transfusion under any circumstance and this was agreed upon. PROCEDURE: With the patient sitting, the right lower posterior chest was prepped and draped, and the lower intercostal space is anesthetized with Xylocaine. The thoracentesis catheter was then inserted into the posterior lower aspect of the right pleural space over an inserting needle. The catheter was left in position and then using a syringe, 700 mL of serous but bloody fluid is aspirated from the right pleural space. No more fluid is able to be removed at this location. The patient tolerated the procedure well. The catheter was removed and a Band- Aid applied. /[id number] SHELTON/BLAYNE DAVID
[2017-07-18] MEDS: Magnesium Oxide 400 MG Tab PO SCH (20:31)
[2017-07-18] MEDS: Lisinopril 2.5 MG Tab PO SCH (20:32)
[2017-07-19] MEDS: Acetaminophen 325 MG Tab PO PRN (00:18)
[2017-07-19] MEDS: Pantoprazole 40 MG Tab.CR PO SCH (06:29)
[2017-07-19] MEDS: Levothyroxine 150 MCG Tab PO SCH (06:29)
[2017-07-19] MEDS: Tamsulosin 0.4 MG Cap.ER PO SCH (08:10)
[2017-07-19] MEDS: Furosemide 20 MG Tab PO SCH (08:10)
[2017-07-19] MEDS: Digoxin 125 MCG Tab PO SCH (08:10)
[2017-07-19] MEDS: Aspirin 81 MG Tab.EC PO SCH (08:10)
[2017-07-19] MEDS: Metoprolol Succinate 25 MG Tab.ER PO SCH (08:11)
--- NOTE | 2017-07-19 10:23 | PCM.PN ---
- General Info Date of Service: 07/19/17 Admission Dx/Problem (Free Text): Patient states he feels much better today. He had a thoracentesis yesterday. He says a little discomfort in the posterior ribs but that's improved also. He was taken some Tylenol No. 3 yesterday but does need none today. He denies he leg swelling, palpitations or dizziness - Patient Data Vitals - Most Recent: Last Vital Signs Temp 97.4 F 07/19/17 00:00 Pulse 75 07/19/17 08:11 Resp 20 07/19/17 00:00 BP 102/65 07/19/17 08:11 Pulse Ox 92 L 07/19/17 00:00 Weight - Most Recent: 173 lb I&O - Last 24 Hours: Intake & Output 07/18/17 07/19/17 07/19/17 22:59 06:59 14:59 Intake Total 200 Output Total 280 300 Balance -280 -100 Lab Results Last 24 Hours: Laboratory Results - last 24 hr 07/18/17 07/18/17 07/18/17 Range/Units 11:12 17:17 20:37 POC Glucose 157 H 127 H 177 H (80-116) mg/dL Digoxin (0.9-2.0) ng/mL 07/19/17 07/19/17 Range/Units 06:25 06:47 POC Glucose 135 H (80-116) mg/dL Digoxin 0.9 (0.9-2.0) ng/mL [facility]uey Results Last 24 Hours: Microbiology 07/18/17 11:55 Gram Stain - Final Pleural Fluid Body Fluid Culture - Preliminary NO GROWTH AFTER 1 DAY 07/16/17 20:35 Gram Stain - Final Sputum - Induced Sputum Culture - Final Streptococcus Salivarius Med Orders - Current: Current Medications Acetaminophen (Tylenol) 650 mg PO Q4H PRN PRN Reason: Pain (Mild 1-3)/fever Last Admin: 07/19/17 00:18 Dose: 650 mg Acetaminophen/Codeine Phosphate (Tylenol With Codeine No.3 300mg/30mg) 1 tab PO Q4H PRN PRN Reason: Pain Last Admin: 07/18/17 21:54 Dose: 1 tab Albuterol (Proventil Neb Soln) 2.5 mg NEB Q2H PRN PRN Reason: Shortness Of Breath/wheezing Last Admin: 07/18/17 12:14 Dose: 2.5 mg Aspirin (Halfprin) 81 mg PO DAILY [facility] Last Admin: 07/19/17 08:10 Dose: 81 mg Digoxin (Lanoxin) 125 mcg PO DAILY [facility] Last Admin: 07/19/17 08:10 Dose: 125 mcg Enoxaparin Sodium (Lovenox) 30 mg SUBCUT Q24H [facility] Last Admin: 07/18/17 13:44 Dose: 30 mg Furosemide (Lasix) 60 mg PO BIDDIURETIC [facility] Last Admin: 07/19/17 08:10 Dose: 60 mg Levofloxacin (Levaquin) 500 mg PO Q48H [facility] Levothyroxine Sodium (Levothyroxine) 150 mcg PO DAILY@0600 [facility] Last Admin: 07/19/17 06:29 Dose: 150 mcg Lisinopril (Prinivil) 2.5 mg PO BEDTIME [facility] Last Admin: 07/18/17 20:32 Dose: 2.5 mg Magnesium Oxide (Magnesium Oxide) 400 mg PO BEDTIME [facility] Last Admin: 07/18/17 20:31 Dose: 400 mg Metoprolol Succinate (Toprol Xl) 12.5 mg PO DAILY [facility] Last Admin: 07/19/17 08:11 Dose: 12.5 mg Pantoprazole Sodium (Protonix) 40 mg PO DAILY@0600 [facility] Last Admin: 07/19/17 06:29 Dose: 40 mg Polyethylene Glycol (Miralax) 17 gm PO DAILY PRN PRN Reason: Constipation Sodium Chloride (Saline Flush) 10 ml FLUSH ASDIRECTED PRN PRN Reason: Keep Vein Open Last Admin: 07/17/17 12:23 Dose: 10 ml Tamsulosin HCl (Flomax) 0.8 mg PO DAILY [facility] Last Admin: 07/19/17 08:10 Dose: 0.8 mg Discontinued Medications Digoxin (Lanoxin) 250 mcg IVPUSH ONETIME ONE Stop: 07/16/17 12:08 Last Admin: 07/16/17 14:43 Dose: 250 mcg Digoxin (Lanoxin) 125 mcg PO ONETIME ONE Stop: 07/16/17 20:01 Last Admin: 07/16/17 21:09 Dose: 125 mcg Furosemide (Lasix) 40 mg IVPUSH BIDDIURETIC [facility] Stop: 07/17/17 14:01 Last Admin: 07/17/17 14:20 Dose: 40 mg Levofloxacin/Dextrose (Levaquin In D5w 750 Mg/150 Ml) 150 mls @ 100 mls/hr IV Q48H [facility] Last Admin: 07/17/17 12:19 Dose: 100 mls/hr Metoprolol Succinate (Toprol Xl) 12.5 mg PO BEDTIME [facility] Metoprolol Succinate (Toprol Xl) 12.5 mg PO BEDTIME [facility] Last Admin: 07/17/17 20:54 Dose: Not Given - Exam General: Alert, Oriented, Cooperative Lungs: Normal Respiratory Effort, Crackles Cardiovascular: No Murmurs, Irregular Rhythm, Tachycardia - Problem List & Annotations (1) Palliative care status SNOMED Code(s): 655417616 Code(s): Z51.5 - ENCOUNTER FOR PALLIATIVE CARE Status: Acute Current Visit: Yes (2) Atrial fibrillation with RVR SNOMED Code(s): 694860056051336 Code(s): I48.91 - UNSPECIFIED ATRIAL FIBRILLATION Status: Acute Current Visit: Yes Annotation/Comment:: Digoxin loading, then daily. Discussed benefit of digoxin which is just patients feel better in CHF and rate control without hypotension, but has no mortality benefit and may actually shorten life compared to beta blockers. Patient and son aware. (3) Chronic systolic heart failure SNOMED Code(s): 131164230 Code(s): I50.22 - CHRONIC SYSTOLIC (CONGESTIVE) HEART FAILURE Status: Acute Current Visit: Yes Annotation/Comment:: We will repeat echo tomorrow. (4) Pneumonia SNOMED Code(s): 776441869 Code(s): J18.9 - PNEUMONIA, UNSPECIFIED ORGANISM Status: Acute Current Visit: Yes (5) Pleural effusion, right SNOMED Code(s): 26163522 Code(s): J90 - PLEURAL EFFUSION, NOT ELSEWHERE CLASSIFIED Status: Acute Current Visit: Yes - Problem List Review Problem List Initiated/Reviewed/Updated: Yes - My Orders Last 24 Hours: My Active Orders 07/18/17 10:15 Metoprolol Succinate [Toprol XL] 12.5 mg PO DAILY 07/18/17 11:55 CULTURE BODY FLUID + SMEAR [RM] Routine 07/18/17 12:17 IS (RT) [RT Incentive Spirometry] [RC] ASDIRECTED 07/18/17 18:15 Acetaminophen/Codeine [Tylenol with Codeine No.3 300MG/30MG] 1 tab PO Q4H PRN 07/19/17 10:15 Levofloxacin [Levaquin] 500 mg PO Q48H - Plan Plan:: Discharge to home. Discussed anticoagulation for atrial fibrillation. He understands the risks and does not want to be anticoagulated. I will have him take his lisinopril at night as Toprol in the a.m. He'll continue digoxin and the Levaquin. Changed Lasix dose to 60 mg twice a day. We'll have home health see him. Low-salt diet which is stress to him today.
[2017-07-19] MEDS ORDERED: Levofloxacin 500 MG Tab PO SCH (10:30)
--- NOTE | 2017-07-19 10:37 | PCM.DCSUM1 ---
Discharge Summary - Hospital Course Free Text/Narrative:: Hospital course-patient was admitted and put on telemetry. He was initially given some Lasix 40 mg IV twice a day which seemed to help his shortness of breath but it did not change his weight. X-ray showed pneumonia to start Levaquin 500 milligrams every other day. He had a pleural effusion on the right. He had thoracentesis was 700 mL out. Culture and cytology are pending. Patient's been having problems with dizziness and hypotension. Which changes medicine lisinopril 2.5 mg at night and Toprol 12.5 mg the morning. Blood pressure systolically was in the upper 90s to low 100s. Pulse hovered around 90 to just over 100. Patient did not have any chest pain or feel dizzy. His breathing improved. Discussed low-salt diet with the patient. He had atrial fibrillation when he was here. Discussed anticoagulation some benefits. And I would be recommended. He does not want to pursue this. We'll discharge him home on home health. Brief History: Patient is an 87-year-old male remarkably independent who had a heart attack back in 2016 and has had shortness of breath since then. Over the last couple of months his exertional shortness of breath and at rest shortness of breath have worsened considerably. Over the last month he has had a productive cough which over the last 2 days has grown worse with white sputum. He's had no fevers, no chills, no sweats. His cough actually is better today than yesterday. He's been treated with a course of azithromycin and a course of Levaquin in the last month. He has good days and bad days. He normally doctors at the [facility] but over the last month has been doctoring at [facility] with a nurse practitioner and has a baseline abnormal chest x-ray. He's had episodes of dizziness and orthostatic hypotension. When he wakes up in the morning he feels pretty good but after taking his pills his blood pressure would drop to systolic blood pressures in the 70s and 80s and so they've been making adjustments to his medications at the clinic. He's had lisinopril stopped, Toprol-XL decreased from 50-12.5 mg daily, and has decreased his Lasix from 80 to 40 twice a day. He was in the clinic again this morning with similar complaints and was tachycardic with heart rates ranging from 100 to 140s and I was contacted by the mid-level provider who saw him and asked to admit him for further workup and evaluation of his shortness of breath. Because the patient doctors both at the [facility] and recently at [facility] our medication list is incorrect as well as the problem list. We are working on getting records from the [facility] - Discharge Data Discharge Date: 07/19/17 Discharge Disposition: Home, W Home Health Agency 06 Condition: Fair - Discharge Diagnosis/Problem(s) (1) Palliative care status SNOMED Code(s): 320123364 ICD Code: Z51.5 - ENCOUNTER FOR PALLIATIVE CARE Status: Acute Current Visit: Yes (2) Atrial fibrillation with RVR SNOMED Code(s): 531693452524511 ICD Code: I48.91 - UNSPECIFIED ATRIAL FIBRILLATION Status: Acute Current Visit: Yes Problem Details: Digoxin loading, then daily. Discussed benefit of digoxin which is just patients feel better in CHF and rate control without hypotension, but has no mortality benefit and may actually shorten life compared to beta blockers. Patient and son aware. (3) Chronic systolic heart failure SNOMED Code(s): 546455492 ICD Code: I50.22 - CHRONIC SYSTOLIC (CONGESTIVE) HEART FAILURE Status: Acute Current Visit: Yes Problem Details: We will repeat echo tomorrow. 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 Will need to be cautious with digoxin. (7) Diabetes mellitus type 2 in nonobese SNOMED Code(s): 755662366 ICD Code: E11.9 - TYPE 2 DIABETES MELLITUS WITHOUT COMPLICATIONS Status: Acute Current Visit: Yes Problem Details: QID blood sugar checks. - Patient Summary/Data Operative Procedure(s) Performed: Right Thoracentesis Consults: Consultations 07/16/17 11:34 Respiratory Care Assess and Treatment [CONS] Routine Comment: Physician Instructions: 07/17/17 16:05 Consult to Physician [CONS] Routine Consulting Provider: Jr Bowen Call Completed to Consulting Physician: Yes Reason for Consult: Pleural effusion - Patient Instructions Diet: Low Sodium Activity: As Tolerated Driving: May Drive Today Showering/Bathing: May Shower - Discharge Plan Prescriptions/Med Rec: Digoxin 125 mcg PO DAILY #14 tablet Levofloxacin [Levaquin] 500 mg PO Q48H #5 tablet Metoprolol Succinate [Toprol XL] 12.5 mg PO DAILY #14 tab.er Home Medications: Home Meds [place] 550 550 mg PO Q7D 07/16/17 [History] Ascorbate Calcium/Bioflavonoid [Lisandra-C 1,000 mg Tablet] 1 tab PO DAILY [History] Aspirin 650 mg PO DAILY PRN 07/16/17 [History] Aspirin [Halfprin] 81 mg PO DAILY 07/16/17 [History] Clear Lungs 2 cap PO DAILY 07/16/17 [History] Coenzyme Q10 & Cinnamon 1 cap PO DAILY 07/16/17 [History] Cyanocobalamin (Vitamin B-12) [Vitamin B-12] 1,000 mcg PO DAILY 07/16/17 [ History] Furosemide [Lasix] 40 mg PO BID 07/16/17 [History] Glucocil 1 cap PO DAILY 07/16/17 [History] Heart Food Caps 2 cap PO DAILY 07/16/17 [History] Levothyroxine 150 mcg PO DAILY 07/16/17 [History] Lisinopril 2.5 mg PO BEDTIME 07/16/17 [History] Omeprazole 20 mg PO DAILY 07/16/17 [History] Protandim 1 tab PO DAILY 07/16/17 [History] Quercetin & Nettle [place] 2 cap PO DAILY 07/16/17 [History] Sildenafil Citrate [Sildenafil] 100 mg PO ASDIRECTED PRN 07/16/17 [History] Tamsulosin [Flomax] 0.8 mg PO BEDTIME 07/16/17 [History] Digoxin 125 mcg PO DAILY #14 tablet 07/19/17 [Rx] Furosemide [Lasix] 60 mg PO BIDDIURETIC tablet 07/19/17 [Rx] Levofloxacin [Levaquin] 500 mg PO Q48H #5 tablet 07/19/17 [Rx] Magnesium Oxide 400 mg PO BEDTIME tablet 07/19/17 [Rx] Metoprolol Succinate [Toprol XL] 12.5 mg PO DAILY #14 tab.er 07/19/17 [Rx] Patient Handouts: Thoracentesis, Care After, Heart Failure, [id number], Fall Prevention in Hospitals, Adult, Venous Thromboembolism Prevention - Discharge Summary/Plan Comment DC Time >30 min.: Yes - Patient Data Vitals - Most Recent: Last Vital Signs Temp 97.4 F 07/19/17 00:00 Pulse 75 07/19/17 08:11 Resp 20 07/19/17 00:00 BP 102/65 07/19/17 08:11 Pulse Ox 92 L 07/19/17 00:00 Weight - Most Recent: 173 lb I&O - Last 24 hours: Intake & Output 07/18/17 07/19/17 07/19/17 22:59 06:59 14:59 Intake Total 200 Output Total 280 300 Balance -280 -100 Lab Results - Last 24 hrs: Laboratory Results - last 24 hr 07/18/17 07/18/17 07/18/17 Range/Units 11:12 17:17 20:37 POC Glucose 157 H 127 H 177 H (80-116) mg/dL Digoxin (0.9-2.0) ng/mL 07/19/17 07/19/17 Range/Units 06:25 06:47 POC Glucose 135 H (80-116) mg/dL Digoxin 0.9 (0.9-2.0) ng/mL ANJANA Results - Last 24 hrs: Microbiology 07/18/17 11:55 Gram Stain - Final Pleural Fluid Body Fluid Culture - Preliminary NO GROWTH AFTER 1 DAY 07/16/17 20:35 Gram Stain - Final Sputum - Induced Sputum Culture - Final Streptococcus Salivarius Med Orders - Current: Current Medications Acetaminophen (Tylenol) 650 mg PO Q4H PRN PRN Reason: Pain (Mild 1-3)/fever Last Admin: 07/19/17 00:18 Dose: 650 mg Acetaminophen/Codeine Phosphate (Tylenol With Codeine No.3 300mg/30mg) 1 tab PO Q4H PRN PRN Reason: Pain Last Admin: 07/18/17 21:54 Dose: 1 tab Albuterol (Proventil Neb Soln) 2.5 mg NEB Q2H PRN PRN Reason: Shortness Of Breath/wheezing Last Admin: 07/18/17 12:14 Dose: 2.5 mg Aspirin (Halfprin) 81 mg PO DAILY [facility] Last Admin: 07/19/17 08:10 Dose: 81 mg Digoxin (Lanoxin) 125 mcg PO DAILY [facility] Last Admin: 07/19/17 08:10 Dose: 125 mcg Enoxaparin Sodium (Lovenox) 30 mg SUBCUT Q24H [facility] Last Admin: 07/18/17 13:44 Dose: 30 mg Furosemide (Lasix) 60 mg PO BIDDIURETIC [facility] Last Admin: 07/19/17 08:10 Dose: 60 mg Levofloxacin (Levaquin) 500 mg PO Q48H [facility] Levothyroxine Sodium (Levothyroxine) 150 mcg PO DAILY@0600 [facility] Last Admin: 07/19/17 06:29 Dose: 150 mcg Lisinopril (Prinivil) 2.5 mg PO BEDTIME [facility] Last Admin: 07/18/17 20:32 Dose: 2.5 mg Magnesium Oxide (Magnesium Oxide) 400 mg PO BEDTIME [facility] Last Admin: 07/18/17 20:31 Dose: 400 mg Metoprolol Succinate (Toprol Xl) 12.5 mg PO DAILY [facility] Last Admin: 07/19/17 08:11 Dose: 12.5 mg Pantoprazole Sodium (Protonix) 40 mg PO DAILY@0600 [facility] Last Admin: 07/19/17 06:29 Dose: 40 mg Polyethylene Glycol (Miralax) 17 gm PO DAILY PRN PRN Reason: Constipation Sodium Chloride (Saline Flush) 10 ml FLUSH ASDIRECTED PRN PRN Reason: Keep Vein Open Last Admin: 07/17/17 12:23 Dose: 10 ml Tamsulosin HCl (Flomax) 0.8 mg PO DAILY [facility] Last Admin: 07/19/17 08:10 Dose: 0.8 mg Discontinued Medications Digoxin (Lanoxin) 250 mcg IVPUSH ONETIME ONE Stop: 07/16/17 12:08 Last Admin: 07/16/17 14:43 Dose: 250 mcg Digoxin (Lanoxin) 125 mcg PO ONETIME ONE Stop: 07/16/17 20:01 Last Admin: 07/16/17 21:09 Dose: 125 mcg Furosemide (Lasix) 40 mg IVPUSH BIDDIURETIC [facility] Stop: 07/17/17 14:01 Last Admin: 07/17/17 14:20 Dose: 40 mg Levofloxacin/Dextrose (Levaquin In D5w 750 Mg/150 Ml) 150 mls @ 100 mls/hr IV Q48H [facility] Last Admin: 07/17/17 12:19 Dose: 100 mls/hr Metoprolol Succinate (Toprol Xl) 12.5 mg PO BEDTIME [facility] Metoprolol Succinate (Toprol Xl) 12.5 mg PO BEDTIME [facility] Last Admin: 07/17/17 20:54 Dose: Not Given
--- NOTE | 2017-07-20 10:50 | CR ---
INDICATION: Pleural effusion. CHEST: Two PA views and a lateral view of the chest were obtained 07/18/2017 and compared with 07/16/2017 and 06/15/2017, again revealing bibasilar pleural parenchymal changes compatible with pneumonia and pleuritis, although a degree of fibrosis may also be present. An appearance of calcified pleural plaque is also noted on the left. The heart is enlarged. The aorta is tortuous and calcified. Overlying EKG leads are noted. Findings compatible with COPD are also seen. Somewhat diminished bone density may be present, suggesting osteoporosis - correlate clinically. Calcified nodule at the left lower lobe posteriorly, compatible with previous granulomatous disease is again noted. Pulmonary vasculature may be slightly less prominent on the previous study, raising question of resolving CHF. IMPRESSION: 1. Bilateral pleural effusions, right greater than left, with bibasilar pleural parenchymal changes also noted. These may be chronic and/or due to acute pneumonia with pleuritis. 2. ASHD with cardiomegaly. 3. COPD. 4. Probable osteoporosis - correlate clinically. MTDD
--- NOTE | 2017-07-20 10:56 | CR ---
INDICATION: Post thoracentesis. CHEST: An AP portable upright view of the chest was obtained 07/18/2017, post thoracentesis on the right, and revealed an appearance of decreased pleural effusion on the right without a definite pneumothorax or other complicating process. No other change is noted from the earlier examination obtained at 0850 hours. This current examination was obtained at 1213 hours. IMPRESSION: No complicating process, post right thoracentesis. The pleural effusion has been decreased in size to an amount similar to the left pleural effusion. MTDD
== END 2017-07-19 11:22 | disposition home health service (06) | DRG 291 ==
LOC: EEVIPCON 10:29 → FB.MS 10:29
PROVIDERS: ADMIT Family Medicine; ATTEND Family Medicine
PROC: 0W993ZX Drainage of Right Pleural Cavity, Percutaneous Approach, Diagnostic (ICD-10-PCS; principal; 2017-07-16)
DX: I50.22 Chronic systolic (congestive) heart failure (principal); J18.9 Pneumonia, unspecified organism; J90 Pleural effusion, not elsewhere classified; Z51.5 Encounter for palliative care; Z66 Do not resuscitate; N18.3 Chronic kidney disease, stage 3 (moderate); I48.2 Chronic atrial fibrillation; I95.9 Hypotension, unspecified; E03.9 Hypothyroidism, unspecified; E11.22 Type 2 diabetes mellitus with diabetic chronic kidney disease; N40.0 Benign prostatic hyperplasia without lower urinary tract symptoms; I25.2 Old myocardial infarction; Z87.891 Personal history of nicotine dependence; Z79.82 Long term (current) use of aspirin
CPT/HCPCS: 36415; 71045; 71046; 71250; 80048; 80053; 80162; 82962; 83036; 83735; 84100; 84484; 85025; 87070; 87077; 87205; 88112; 88305; 93005; 93306; 94150; 94640; A9270-GY; J1160; J1650; J1940; J1956; J7050

== ENCOUNTER 2018-04-26 10:57 | Inpatient (IN) | payer BC, MEDICARE ==
--- NOTE | 2018-04-26 11:56 | EDM.PDOC ---
ED HPI GENERAL MEDICAL PROBLEM - General Stated Complaint: O2 LOW CONFUSSED Time Seen by Provider: 04/26/18 11:25 Source of Information: Reports: Patient, Family - History of Present Illness INITIAL COMMENTS - FREE TEXT/NARRATIVE: pt comes from home with his son , with concerns for increased confusion , gen weakness / could not get up out of his bed this morning, and poor feeding X 2 days, was noted by home health nurse to have low sats at mid 80s . pt denies fever chills or any other associated sx or concerns , he is alert here and follow simple commands , has stable vitals on arrival. - Related Data Allergies Allergy/AdvReac Type Severity Reaction Status Date / Time No Known Allergies Allergy Verified 01/01/18 05:13 Home Meds: Home Meds Aspirin [Halfprin] 81 mg PO DAILY 07/16/17 [History] Levothyroxine 150 mcg PO DAILY 07/16/17 [History] Lisinopril 2.5 mg PO BEDTIME 07/16/17 [History] Omeprazole 20 mg PO DAILY 07/16/17 [History] Tamsulosin [Flomax] 0.8 mg PO BEDTIME 07/16/17 [History] Clopidogrel [Plavix] 75 mg PO DAILY 01/01/18 [History] Furosemide 80 mg PO DAILY 01/01/18 [History] Metoprolol Succinate [Toprol Xl] 12.5 mg PO DAILY 01/01/18 [History] Tiotropium [Spiriva HandiHaler] 1 cap INH DAILY 01/01/18 [History] atorvaSTATin [Lipitor] 80 mg PO DAILY 01/01/18 [History] Past Medical History Cardiovascular History: Reports: Afib, Heart Failure, Hypertension, [facility], SOB on Exertion, Stents Respiratory History: Reports: SOB, Other (See Below) Other Respiratory History: Asbestos problem in lungs as a result of work done in the [employer]. Genitourinary History: Reports: Renal Disease, Other (See Below) Other Genitourinary History: Slow to start stream, is on Flomax. Stage IV kidney failure. Endocrine/Metabolic History: Reports: Diabetes, Type I - Past Surgical History Cardiovascular Surgical History: Reports: Other (See Below) Other Cardiovascular Surgeries/Procedures: Arrangements being made for defibrillator placement, possibly January 2018. Social & Family History - Family History Family Medical History: Noncontributory - Caffeine Use Caffeine Use: Reports: Coffee ED ROS GENERAL - Review of Systems Review Of Systems: See Below Constitutional: Reports: Weakness, Fatigue. Denies: Fever HEENT: Reports: No Symptoms Respiratory: Reports: Shortness of Breath, Cough, Other (pt has chronic cough ) Cardiovascular: Reports: Edema. Denies: Chest Pain GI/Abdominal: Reports: Anorexia. Denies: Abdominal Pain, Diarrhea, Nausea, Vomiting : Reports: No Symptoms Musculoskeletal: Reports: No Symptoms Skin: Reports: No Symptoms Neurological: Reports: Confusion, Difficulty Walking. Denies: Headache, Seizure , Weakness ED EXAM, GENERAL - Physical Exam Exam: See Below Exam Limited By: Other (pt has aphasia and most hx was obtained from his son) Throat/Mouth: Normal Oropharynx Neck: Normal Inspection, Non-Tender Respiratory/Chest: No Respiratory Distress, Crackles Cardiovascular: Regular Rate, Rhythm, No Gallop, No JVD, No Murmur, No Rub. No : JVD GI/Abdominal: Normal Bowel Sounds, Soft, Non-Tender Back Exam: Normal Inspection Neurological: Alert, Oriented, No Motor/Sensory Deficits Psychiatric: Normal Affect Skin Exam: Warm Course - Vital Signs Text/Narrative:: labs and CXR results were explained to pt / his son. CXR shows edema/ pleural effusion and infiltrates . [place] 19[place] [address] . pt has recurrent exacerbation of CXF and pneumonia. blood cultures were taken will start rocephin / zithro / IV diuresis discussed with Dr Sommers and he was in acceptance of pt care. - Orders/Labs/Meds Orders: Active Orders 24 hr Category Date Time Status EKG Documentation Completion [RC] ASDIRECTED Care 04/26/18 11:59 Active Chest 1V Frontal [CR] Stat Exams 04/26/18 11:56 Taken UA W/MICROSCOPIC [URIN] Stat Lab 04/26/18 11:56 Ordered EKG 12 Lead [EK] Routine Ther 04/26/18 11:56 Ordered Labs: Laboratory Tests 04/26/18 04/26/18 04/26/18 Range/Units 12:06 12:06 12:06 WBC 19.5 H (4.5-12.0) X10-3/uL RBC 3.79 L (4.30-5.75) x10(6)uL Hgb 11.3 L (13.5-17.8) g/dL Hct 34.0 (30.0-51.3) % MCV 89.8 (80-96) fL MCH 29.8 (27.7-33.6) pg MCHC 33.2 (32.2-35.4) g/dL RDW 15.3 (11.5-15.5) % Plt Count 292 (125-369) X10(3)uL MPV 8.6 (7.4-10.4) fL Add Manual Diff Yes Neutrophils % (Manual) 89 H (46-82) % Lymphocytes % (Manual) 5 L (13-37) % Monocytes % (Manual) 6 (4-12) % Sodium 135 (135-145) mmol/L Potassium 4.0 (3.5-5.3) mmol/L Chloride 96 L D (100-110) mmol/L Carbon Dioxide 34 H (21-32) mmol/L BUN 70 H D (7-18) mg/dL Creatinine 1.8 H (0.70-1.30) mg/dL Est Cr Clr Drug Dosing TNP Estimated GFR (MDRD) 36 L (>60) BUN/Creatinine Ratio 38.9 H (9-20) Glucose 285 H D (80-116) mg/dL Calcium 9.1 (8.6-10.2) mg/dL Total Bilirubin 0.7 (0.1-1.3) mg/dL AST 23 D (5-25) IU/L ALT 37 H D (12-36) U/L Alkaline Phosphatase 128 H (56-112) IU/L Troponin I < 0.017 L (<0.017-0.056) ng/mL NT-Pro-B Natriuret Pep 18111 H* (<=450) pg/mL Total Protein 7.0 (6.0-8.0) g/dL Albumin 2.3 L (3.2-4.6) g/dL Globulin 4.7 g/dL Albumin/Globulin Ratio 0.5 Departure - Departure Time of Disposition: 13:10 Disposition: Admitted As Inpatient 66 Clinical Impression: CHF (congestive heart failure) - Discharge Information Referrals: Frantz Fischer MD [Primary Care Provider] - - My Orders Last 24 Hours: My Active Orders 04/26/18 11:56 Chest 1V Frontal [CR] Stat UA W/MICROSCOPIC [URIN] Stat EKG 12 Lead [EK] Routine 04/26/18 11:59 EKG Documentation Completion [RC] ASDIRECTED - Assessment/Plan Last 24 Hours: My Active Orders 04/26/18 11:56 Chest 1V Frontal [CR] Stat UA W/MICROSCOPIC [URIN] Stat EKG 12 Lead [EK] Routine 04/26/18 11:59 EKG Documentation Completion [RC] ASDIRECTED
[2018-04-26] MEDS ORDERED: Ondansetron 4 MG Tab.DIS PO PRN (13:11)
[2018-04-26] MEDS ORDERED: Zolpidem 5 MG Tab PO PRN (13:11)
[2018-04-26] MEDS ORDERED: Acetaminophen 325 MG Tab PO PRN (13:11)
[2018-04-26] MEDS ORDERED: Polyethylene Glycol 3350 Powder 17 GM Packet PO PRN (13:11)
[2018-04-26] MEDS ORDERED: Furosemide 40 MG/4 ML VIAL IVPUSH ONE (13:16)
[2018-04-26] MEDS ORDERED: cefTRIAXone 1 GM in Sodium Chloride 0.9% 50 ML IV SCH (13:30)
[2018-04-26] MEDS ORDERED: Furosemide 40 MG/4 ML VIAL ONE (14:18)
[2018-04-26] MEDS: Sodium Chloride 0.9% 10 ML Syringe FLUSH PRN ×2 (14:27→14:34)
[2018-04-26] MEDS: cefTRIAXone 1 GM Vial IVPUSH SCH (14:29)
[2018-04-26] MEDS: Azithromycin 500 MG in Sodium Chloride 0.9% 250 ML IV SCH (14:30)
[2018-04-26] MEDS ORDERED: tiZANidine 4 MG Tab PO PRN (15:26)
--- NOTE | 2018-04-26 17:46 | PCM.HP ---
H&P History of Present Illness - General Date of Service: 04/26/18 Admit Problem/Dx: Admission Diagnosis/Problem Admission Diagnosis/Problem CHF, Congestive heart failure Source of Information: Family History Limitations: Reports: Other (Obtunded) - History of Present Illness Initial Comments - Free Text/Narative: This is an 87-year-old male patient with a history of CHF, CAD was brought to the ER after 3 days of being confused, seeing hallucinations and being very tired and sleeping excessively. The patient is sleeping and only responsive briefly to voice and can answer any questions. His son states that he's been this way for 3 days. The son was in [place] usually watches over him although he lives with his . His was shielding the son from his condition. He's been very tired. He hasn't had any leg swelling, chest pain, fevers, chills but it's been having visual hallucinations. - Related Data Allergies/Adverse Reactions: Allergies Allergy/AdvReac Type Severity Reaction Status Date / Time No Known Allergies Allergy Verified 01/01/18 05:13 Home Medications: Home Meds Aspirin [Halfprin] 81 mg PO DAILY 07/16/17 [History] Levothyroxine 150 mcg PO DAILY 07/16/17 [History] Tamsulosin [Flomax] 0.8 mg PO BEDTIME 07/16/17 [History] Furosemide 80 mg PO DAILY 01/01/18 [History] Tiotropium [Spiriva HandiHaler] 18 mcg INH DAILY 01/01/18 [History] Apixaban [Eliquis] 2.5 mg PO BID 04/26/18 [History] Capsaicin [Zostrix 0.025% Crm] 1 applic TOP TID PRN 04/26/18 [History] Diltiazem HCl [Cardizem] 30 mg PO QID 04/26/18 [History] Finasteride [Proscar] 5 mg PO DAILY 04/26/18 [History] Melatonin 3 mg PO BEDTIME PRN 04/26/18 [History] Metoprolol Succinate [Toprol XL] 100 mg PO BID 04/26/18 [History] Omeprazole 20 mg PO DAILY 04/26/18 [History] Sildenafil Citrate [Sildenafil] 100 mg PO ASDIRECTED PRN 04/26/18 [History] Spironolactone [Aldactone] 12.5 mg PO DAILY 04/26/18 [History] Ubidecarenone [Coenzyme Q10] 100 mg PO DAILY 04/26/18 [History] tiZANidine [Zanaflex] 4 mg PO ASDIRECTED PRN 04/26/18 [History] Past Medical History HEENT History: Reports: Cataract, Hard of Hearing, Other (See Below) Other HEENT History: Wears glasses and hearing aides. Cardiovascular History: Reports: Afib, Heart Failure, Hypertension, AL, SOB on Exertion, Stents Respiratory History: Reports: SOB, Other (See Below) Other Respiratory History: Asbestos problem in lungs as a result of work done in the [employer] Gastrointestinal History: Reports: Other (See Below) Other Gastrointestinal History: Takes medication for heartburn. Genitourinary History: Reports: Renal Disease, Other (See Below) Other Genitourinary History: Slow to start stream, is on Flomax. Kidney failure improving. Endocrine/Metabolic History: Reports: Diabetes, Type I Dermatologic History: Reports: Other (See Below) Other Dermatologic History: Small area of skin break breakdown on coccyx area. - Past Surgical History HEENT Surgical History: Reports: Cataract Surgery Social & Family History - Family History Family Medical History: Noncontributory - Caffeine Use Caffeine Use: Reports: Coffee H&P Review of Systems - Review of Systems: Review Of Systems: Unable To Obtain Exam - Exam Exam: See Below - Vital Signs Vital Signs: Last Vital Signs Temp 97 F 04/26/18 14:05 Pulse 117 H 04/26/18 14:05 Resp 16 04/26/18 14:05 BP 101/66 04/26/18 14:05 Pulse Ox 98 04/26/18 14:05 Weight: 154 lb 12.8 oz - Exam Quality Assessment: Supplemental Oxygen General: Obtunded HEENT: TMs Clear, Other (Throat clear tongue mildly dry.) Neck: Supple, Trachea Midline. No: JVD Lungs: Normal Respiratory Effort, Crackles (Mild at the bases) Cardiovascular: Regular Rate, Irregular Rhythm. No: Systolic Murmur GI/Abdominal Exam: Normal Bowel Sounds, Soft, Non-Tender, No Distention, No Mass Back Exam: Normal Inspection Extremities: Other (Very minimal swelling left ankle. Right ankle is normal.) Skin: Warm, Dry Neurological: Normal Tone Neuro Extensive - Mental Status: No: Alert, Oriented x3, Normal Cognition Psychiatric: No: Alert, Normal Affect, Normal Mood - Patient Data Lab Results Last 24 hrs: Laboratory Results - last 24 hr 04/26/18 04/26/18 04/26/18 Range/Units 12:06 12:06 12:06 WBC 19.5 H (4.5-12.0) X10-3/uL RBC 3.79 L (4.30-5.75) x10(6)uL Hgb 11.3 L (13.5-17.8) g/dL Hct 34.0 (30.0-51.3) % MCV 89.8 (80-96) fL MCH 29.8 (27.7-33.6) pg MCHC 33.2 (32.2-35.4) g/dL RDW 15.3 (11.5-15.5) % Plt Count 292 (125-369) X10(3)uL MPV 8.6 (7.4-10.4) fL Add Manual Diff Yes Neutrophils % (Manual) 89 H (46-82) % Lymphocytes % (Manual) 5 L (13-37) % Monocytes % (Manual) 6 (4-12) % Sodium 135 (135-145) mmol/L Potassium 4.0 (3.5-5.3) mmol/L Chloride 96 L D (100-110) mmol/L Carbon Dioxide 34 H (21-32) mmol/L BUN 70 H D (7-18) mg/dL Creatinine 1.8 H (0.70-1.30) mg/dL Est Cr Clr Drug Dosing TNP Estimated GFR (MDRD) 36 L (>60) BUN/Creatinine Ratio 38.9 H (9-20) Glucose 285 H D (80-116) mg/dL Calcium 9.1 (8.6-10.2) mg/dL Total Bilirubin 0.7 (0.1-1.3) mg/dL AST 23 D (5-25) IU/L ALT 37 H D (12-36) U/L Alkaline Phosphatase 128 H (56-112) IU/L Troponin I < 0.017 L (<0.017-0.056) ng/mL NT-Pro-B Natriuret Pep 34946 H* (<=450) pg/mL Total Protein 7.0 (6.0-8.0) g/dL Albumin 2.3 L (3.2-4.6) g/dL Globulin 4.7 g/dL Albumin/Globulin Ratio 0.5 Urine Color (YELLOW) Urine Appearance (CLEAR) Urine pH (5.0-6.5) Ur Specific [place] (1.010-1.025) Urine Protein (NEGATIVE) mg/dL Urine Glucose (UA) (NORMAL) mg/dL Urine Ketones (NEGATIVE) mg/dL Urine Occult Blood (NEGATIVE) Urine Nitrite (NEGATIVE) Urine Bilirubin (NEGATIVE) Urine Urobilinogen (NEGATIVE) mg/dL Ur Leukocyte Esterase (NEGATIVE) Urine RBC (0-5) Urine WBC (0-5) Ur Squamous Epith Cells (NS,R,O) Urine Bacteria (NS) Hyaline Casts (NS) 04/26/18 Range/Units 15:00 WBC (4.5-12.0) X10-3/uL RBC (4.30-5.75) x10(6)uL Hgb (13.5-17.8) g/dL Hct (30.0-51.3) % MCV (80-96) fL MCH (27.7-33.6) pg MCHC (32.2-35.4) g/dL RDW (11.5-15.5) % Plt Count (125-369) X10(3)uL MPV (7.4-10.4) fL Add Manual Diff Neutrophils % (Manual) (46-82) % Lymphocytes % (Manual) (13-37) % Monocytes % (Manual) (4-12) % Sodium (135-145) mmol/L Potassium (3.5-5.3) mmol/L Chloride (100-110) mmol/L Carbon Dioxide (21-32) mmol/L BUN (7-18) mg/dL Creatinine (0.70-1.30) mg/dL Est Cr Clr Drug Dosing Estimated GFR (MDRD) (>60) BUN/Creatinine Ratio (9-20) Glucose (80-116) mg/dL Calcium (8.6-10.2) mg/dL Total Bilirubin (0.1-1.3) mg/dL AST (5-25) IU/L ALT (12-36) U/L Alkaline Phosphatase (56-112) IU/L Troponin I (<0.017-0.056) ng/mL NT-Pro-B Natriuret Pep (<=450) pg/mL Total Protein (6.0-8.0) g/dL Albumin (3.2-4.6) g/dL Globulin g/dL Albumin/Globulin Ratio Urine Color Yellow (YELLOW) Urine Appearance Clear (CLEAR) Urine pH 5.0 (5.0-6.5) Ur Specific [place] 1.015 (1.010-1.025) Urine Protein Negative (NEGATIVE) mg/dL Urine Glucose (UA) Normal (NORMAL) mg/dL Urine Ketones Negative (NEGATIVE) mg/dL Urine Occult Blood Negative (NEGATIVE) Urine Nitrite Negative (NEGATIVE) Urine Bilirubin Negative (NEGATIVE) Urine Urobilinogen Normal (NEGATIVE) mg/dL Ur Leukocyte Esterase Negative (NEGATIVE) Urine RBC Not seen (0-5) Urine WBC 0-5 (0-5) Ur Squamous Epith Cells Few H (NS,R,O) Urine Bacteria Few H (NS) Hyaline Casts Few H (NS) Result Diagrams: 04/26/18 12:06 04/26/18 12:06 - Problem List (1) Atrial fibrillation with RVR SNOMED Code(s): 269752731780089 ICD Code: I48.91 - UNSPECIFIED ATRIAL FIBRILLATION Status: Acute Current Visit: No Problem Details: Digoxin loading, then daily. Discussed benefit of digoxin which is just patients feel better in CHF and rate control without hypotension, but has no mortality benefit and may actually shorten life compared to beta blockers. Patient and son aware. (2) Chronic kidney disease (CKD) stage G3a/A1, moderately decreased glomerular filtration rate (GFR) between 45-59 mL/min/1.73 square meter and albuminuria creatinine ratio less than 30 mg/g SNOMED Code(s): 756034604, 941974556 ICD Code: N18.3 - CHRONIC KIDNEY DISEASE, STAGE 3 (MODERATE) Status: Acute Current Visit: No (3) Chronic systolic heart failure SNOMED Code(s): 837292174 ICD Code: I50.22 - CHRONIC SYSTOLIC (CONGESTIVE) HEART FAILURE Status: Acute Current Visit: Yes Problem Details: We will repeat echo tomorrow. (4) Confusion SNOMED Code(s): 627855919 ICD Code: R41.0 - DISORIENTATION, UNSPECIFIED Status: Acute Current Visit : Yes (5) Dehydration SNOMED Code(s): 50907015 ICD Code: E86.0 - DEHYDRATION Status: Acute Current Visit: Yes (6) Diabetes mellitus type 2 in nonobese SNOMED Code(s): 733032602 ICD Code: E11.9 - TYPE 2 DIABETES MELLITUS WITHOUT COMPLICATIONS Status: Acute Current Visit: Yes Problem Details: QID blood sugar checks. (7) Palliative care status SNOMED Code(s): 277790745 ICD Code: Z51.5 - ENCOUNTER FOR PALLIATIVE CARE Status: Acute Current Visit: Yes (8) Pleural effusion, right SNOMED Code(s): 18976384 ICD Code: J90 - PLEURAL EFFUSION, NOT ELSEWHERE CLASSIFIED Status: Acute Current Visit: Yes (9) Pneumonia SNOMED Code(s): 136788117 ICD Code: J18.9 - PNEUMONIA, UNSPECIFIED ORGANISM Status: Acute Current Visit: Yes Problem List Initiated/Reviewed/Updated: Yes Orders Last 24hrs: Active Orders 24 hr Category Date Time Status Patient Status [ADT] Routine ADT 04/26/18 13:11 Active EKG Documentation Completion [RC] ASDIRECTED Care 04/26/18 11:59 Active Oxygen Therapy [RC] PRN Care 04/26/18 13:11 Active Up With Assistance [RC] ASDIRECTED Care 04/26/18 13:11 Active VTE/DVT Education [RC] Per Unit Routine Care 04/26/18 13:11 Active Vital Signs [RC] Q4H Care 04/26/18 13:11 Active Heart Healthy Diet [DIET] Diet 04/26/18 Dinner Ordered Chest 1V Frontal [CR] Stat Exams 04/26/18 11:56 Taken CULTURE BLOOD [BC] Urgent Lab 04/26/18 13:30 Received CULTURE BLOOD [BC] Urgent Lab 04/26/18 13:35 Received Acetaminophen [Tylenol] Med 04/26/18 13:11 Active 650 mg PO Q4H PRN Apixaban [Eliquis] Med 04/26/18 21:00 Active 2.5 mg PO BID Apixaban [Eliquis] Med 04/26/18 21:00 Ordered 2.5 mg PO BID Aspirin [Halfprin] Med 04/27/18 09:00 Active 81 mg PO DAILY Azithromycin [Zithromax] 500 mg Med 04/26/18 13:30 Active Sodium Chloride 0.9% [Normal Saline] 250 ml IV Q24H Diltiazem IR [Cardizem] Med 04/26/18 17:00 Active 30 mg PO QID Diltiazem IR [Cardizem] Med 04/26/18 21:00 Ordered 30 mg PO QID Finasteride [Proscar] Med 04/27/18 09:00 Active 5 mg PO DAILY Finasteride [Proscar] Med 04/27/18 09:00 Ordered 5 mg PO DAILY Levothyroxine Med 04/27/18 06:00 Active 150 mcg PO DAILY@0600 Metoprolol Succinate [Toprol XL] Med 04/26/18 21:00 Active 100 mg PO BID Metoprolol Succinate [Toprol XL] Med 04/26/18 21:00 Ordered 100 mg PO BID Ondansetron [Zofran ODT] Med 04/26/18 13:11 Active 4 mg PO Q4H PRN Pantoprazole [ProTONIX] Med 04/27/18 06:00 Active 40 mg PO DAILY@0600 Polyethylene Glycol 3350 [MiraLAX] Med 04/26/18 13:11 Active 17 gm PO DAILY PRN Sodium Chloride 0.9% [Normal Saline] 1,000 ml Med 04/26/18 17:45 Ordered IV ASDIRECTED Sodium Chloride 0.9% [Saline Flush] Med 04/26/18 13:11 Active 10 ml FLUSH ASDIRECTED PRN Spironolactone [Aldactone] Med 04/27/18 09:00 Active 12.5 mg PO DAILY Tamsulosin [Flomax] Med 04/26/18 21:00 Active 0.8 mg PO BEDTIME Tiotropium [Spiriva HandiHaler] Med 04/27/18 09:00 Active 18 mcg INH DAILY Zolpidem [Ambien] Med 04/26/18 13:11 Active 5 mg PO BEDTIME PRN cefTRIAXone [Rocephin] Med 04/26/18 14:15 Active 1 gm IVPUSH Q24H tiZANidine [Zanaflex] Med 04/26/18 15:26 Active 4 mg PO BID PRN Blood Culture x2 Reflex Set [OM.PC] Urgent Oth 04/26/18 13:16 Ordered Saline Lock Insert [OM.PC] Routine Oth 04/26/18 13:11 Ordered Resuscitation Status Routine Resus Stat 04/26/18 13:11 Ordered EKG 12 Lead [EK] Routine Ther 04/26/18 11:56 Ordered Medication Orders Acetaminophen (Tylenol) 650 mg PO Q4H PRN PRN Reason: Pain (Mild 1-3)/fever Apixaban (Eliquis) 2.5 mg PO BID [facility] Aspirin (Halfprin) 81 mg PO DAILY [facility] Ceftriaxone Sodium (Rocephin) 1 gm IVPUSH Q24H [facility] Last Admin: 04/26/18 14:29 Dose: 1 gm Diltiazem HCl (Cardizem) 30 mg PO QID [facility] Diltiazem HCl (Cardizem) 30 mg PO QID [facility] Finasteride (Proscar) 5 mg PO DAILY [facility] Finasteride (Proscar) 5 mg PO DAILY [facility] Azithromycin 500 mg/ Sodium (Chloride) 250 mls @ 250 mls/hr IV Q24H [facility] Last Admin: 04/26/18 14:30 Dose: 250 mls/hr Sodium Chloride (Normal Saline) 1,000 mls @ 100 mls/hr IV ASDIRECTED [facility] Levothyroxine Sodium (Levothyroxine) 150 mcg PO DAILY@0600 [facility] Metoprolol Succinate (Toprol Xl) 100 mg PO BID [facility] Non-Formulary Medication (Apixaban [Eliquis]) 2.5 mg PO BID [facility] Non-Formulary Medication (Metoprolol Succinate [Toprol Xl]) 100 mg PO BID [facility] Ondansetron HCl (Zofran Odt) 4 mg PO Q4H PRN PRN Reason: nausea, able to take PO Pantoprazole Sodium (Protonix) 40 mg PO DAILY@0600 [facility] Polyethylene Glycol (Miralax) 17 gm PO DAILY PRN PRN Reason: Constipation Sodium Chloride (Saline Flush) 10 ml FLUSH ASDIRECTED PRN PRN Reason: Keep Vein Open Last Admin: 04/26/18 14:34 Dose: 10 ml Admin: 04/26/18 14:27 Dose: 10 ml Spironolactone (Aldactone) 12.5 mg PO DAILY [facility] Tamsulosin HCl (Flomax) 0.8 mg PO BEDTIME [facility] Tiotropium [place] (Spiriva Handihaler) 18 mcg INH DAILY [facility] Tizanidine HCl (Zanaflex) 4 mg PO BID PRN PRN Reason: MUSCLE SPASMS Zolpidem Tartrate (Ambien) 5 mg PO BEDTIME PRN PRN Reason: Sleep Assessment/Plan Comment:: 1. Admit for inpatient. 2. Rocephin/Zithromax, blood cultures 3. Admitting doctor gave him 80 of IV Lasix. 4. I/O daily weights. 5. I started some of his home meds initially his diltiazem, metoprolol and his blood thinner. 6 His own blood thinner for VVT prophylaxis. If he cannot swallow pills and will switch over to Lovenox. 7. NPO 8. Patients family states he is a DNR/DNI. 9. Blood cultures and repeat all his labs in the a.m.
[2018-04-26] MEDS: Sodium Chloride 0.9% 1,000 ML IV SCH (18:07)
[2018-04-26] MEDS: Diltiazem IR 30 MG Tab PO SCH ×2 (18:15→18:30)
[2018-04-26] MEDS ORDERED: Diltiazem IR 30 MG Tab PO SCH (21:00)
[2018-04-26] MEDS ORDERED: Lisinopril 5 MG Tab PO SCH (21:00)
[2018-04-26] MEDS ORDERED: Non-Formulary Medication 1 Each (Metoprolol Succinate [Toprol Xl] 100 MG) PO SCH (21:00)
[2018-04-26] MEDS ORDERED: Non-Formulary Medication 1 Each (Apixaban [Eliquis] 2.5 MG) PO SCH (21:00)
[2018-04-27] MEDS: Diltiazem IR 30 MG Tab PO SCH ×5 (00:49→20:26)
[2018-04-27] MEDS: Tamsulosin 0.4 MG Cap.ER PO SCH ×2 (00:49→20:27)
[2018-04-27] MEDS: Apixaban 5 MG Tab PO SCH ×3 (00:49→20:26)
[2018-04-27] MEDS: Metoprolol Succinate 100 MG Tab.ER PO SCH ×3 (00:50→20:27)
[2018-04-27] MEDS ORDERED: Sodium Chloride 0.9% 10 ML SDV IV ONE (02:40)
[2018-04-27] MEDS ORDERED: Sodium Chloride 0.9% 250 ML IV ONE (03:11)
[2018-04-27] MEDS: Sodium Chloride 0.9% 1,000 ML IV SCH ×3 (03:11→20:39)
[2018-04-27] MEDS: Levothyroxine 150 MCG Tab PO SCH (06:04)
[2018-04-27] MEDS: Pantoprazole 40 MG Tab.CR PO SCH (06:04)
--- NOTE | 2018-04-27 07:41 | CR ---
INDICATION: Short of breath. CHEST: An AP upright portable view of the chest was obtained 04/26/18 and compared with 07/18/17. The heart appears enlarged. Bibasilar pleural parenchymal changes are again noted with moderately large pleural effusion suggested at the right lung base and a small pleural effusion at the left lung base. Parenchymal changes are noted in the mid lung schneider, especially on the left and at both lung bases with a possible pleural density on the left again suggested, which has a somewhat convex appearance near the left costophrenic angle, as previously. Pleural effusion appears to be more prominent on the right than on the recent study. IMPRESSION: Bilateral pleural parenchymal changes with recurring moderately large pleural effusion on the right. MTDD
--- NOTE | 2018-04-27 08:43 | PCM.PN ---
- General Info Date of Service: 04/27/18 Admission Dx/Problem (Free Text): Patient responds today with a nod. He is nonverbal at this time with his eyes closed. - Patient Data Vitals - Most Recent: Last Vital Signs Temp 97.8 F 04/27/18 04:00 Pulse 108 H 04/27/18 04:00 Resp 16 04/27/18 04:00 BP 100/52 L 04/27/18 04:00 Pulse Ox 99 04/27/18 04:00 Weight - Most Recent: 154 lb 12.8 oz I&O - Last 24 Hours: Intake & Output 04/26/18 04/27/18 04/27/18 22:59 06:59 14:59 Intake Total 638 915 Output Total 140 Balance 498 915 Lab Results Last 24 Hours: Laboratory Results - last 24 hr 04/26/18 04/26/18 04/26/18 Range/Units 12:06 12:06 12:06 WBC 19.5 H (4.5-12.0) X10-3/uL Corrected WBC (4.5-12.0) X10(3) RBC 3.79 L (4.30-5.75) x10(6)uL Hgb 11.3 L (13.5-17.8) g/dL Hct 34.0 (30.0-51.3) % MCV 89.8 (80-96) fL MCH 29.8 (27.7-33.6) pg MCHC 33.2 (32.2-35.4) g/dL RDW 15.3 (11.5-15.5) % Plt Count 292 (125-369) X10(3)uL MPV 8.6 (7.4-10.4) fL Add Manual Diff Yes Neutrophils % (Manual) 89 H (46-82) % Band Neutrophils % (0-6) % Lymphocytes % (Manual) 5 L (13-37) % Monocytes % (Manual) 6 (4-12) % Nucleated RBCs (0-0) /100WBC Sodium 135 (135-145) mmol/L Potassium 4.0 (3.5-5.3) mmol/L Chloride 96 L D (100-110) mmol/L Carbon Dioxide 34 H (21-32) mmol/L BUN 70 H D (7-18) mg/dL Creatinine 1.8 H (0.70-1.30) mg/dL Est Cr Clr Drug Dosing TNP Estimated GFR (MDRD) 36 L (>60) BUN/Creatinine Ratio 38.9 H (9-20) Glucose 285 H D (80-116) mg/dL Calcium 9.1 (8.6-10.2) mg/dL Total Bilirubin 0.7 (0.1-1.3) mg/dL AST 23 D (5-25) IU/L ALT 37 H D (12-36) U/L Alkaline Phosphatase 128 H (56-112) IU/L Troponin I < 0.017 L (<0.017-0.056) ng/mL NT-Pro-B Natriuret Pep 04426 H* (<=450) pg/mL Total Protein 7.0 (6.0-8.0) g/dL Albumin 2.3 L (3.2-4.6) g/dL Globulin 4.7 g/dL Albumin/Globulin Ratio 0.5 Urine Color (YELLOW) Urine Appearance (CLEAR) Urine pH (5.0-6.5) Ur Specific [place] (1.010-1.025) Urine Protein (NEGATIVE) mg/dL Urine Glucose (UA) (NORMAL) mg/dL Urine Ketones (NEGATIVE) mg/dL Urine Occult Blood (NEGATIVE) Urine Nitrite (NEGATIVE) Urine Bilirubin (NEGATIVE) Urine Urobilinogen (NEGATIVE) mg/dL Ur Leukocyte Esterase (NEGATIVE) Urine RBC (0-5) Urine WBC (0-5) Ur Squamous Epith Cells (NS,R,O) Urine Bacteria (NS) Hyaline Casts (NS) 04/26/18 04/27/18 04/27/18 Range/Units 15:00 06:15 06:15 WBC 18.0 H (4.5-12.0) X10-3/uL Corrected WBC 17.0 H (4.5-12.0) X10(3) RBC 3.76 L (4.30-5.75) x10(6)uL Hgb 11.3 L (13.5-17.8) g/dL Hct 34.2 (30.0-51.3) % MCV 91.1 (80-96) fL MCH 30.0 (27.7-33.6) pg MCHC 32.9 (32.2-35.4) g/dL RDW 15.7 H (11.5-15.5) % Plt Count 344 (125-369) X10(3)uL MPV 8.4 (7.4-10.4) fL Add Manual Diff Yes Neutrophils % (Manual) 92 H (46-82) % Band Neutrophils % 1 (0-6) % Lymphocytes % (Manual) 3 L (13-37) % Monocytes % (Manual) 4 (4-12) % Nucleated RBCs 6 H (0-0) /100WBC Sodium 141 (135-145) mmol/L Potassium 4.3 (3.5-5.3) mmol/L Chloride 102 D (100-110) mmol/L Carbon Dioxide 35 H (21-32) mmol/L BUN 62 H (7-18) mg/dL Creatinine 1.7 H (0.70-1.30) mg/dL Est Cr Clr Drug Dosing 30.40 Estimated GFR (MDRD) 38 L (>60) BUN/Creatinine Ratio 36.5 H (9-20) Glucose 197 H D (80-116) mg/dL Calcium 8.8 (8.6-10.2) mg/dL Total Bilirubin 0.5 (0.1-1.3) mg/dL AST 21 (5-25) IU/L ALT 39 H (12-36) U/L Alkaline Phosphatase 120 H (56-112) IU/L Troponin I (<0.017-0.056) ng/mL NT-Pro-B Natriuret Pep (<=450) pg/mL Total Protein 6.9 (6.0-8.0) g/dL Albumin 2.2 L (3.2-4.6) g/dL Globulin 4.7 g/dL Albumin/Globulin Ratio 0.5 Urine Color Yellow (YELLOW) Urine Appearance Clear (CLEAR) Urine pH 5.0 (5.0-6.5) Ur Specific [place] 1.015 (1.010-1.025) Urine Protein Negative (NEGATIVE) mg/dL Urine Glucose (UA) Normal (NORMAL) mg/dL Urine Ketones Negative (NEGATIVE) mg/dL Urine Occult Blood Negative (NEGATIVE) Urine Nitrite Negative (NEGATIVE) Urine Bilirubin Negative (NEGATIVE) Urine Urobilinogen Normal (NEGATIVE) mg/dL Ur Leukocyte Esterase Negative (NEGATIVE) Urine RBC Not seen (0-5) Urine WBC 0-5 (0-5) Ur Squamous Epith Cells Few H (NS,R,O) Urine Bacteria Few H (NS) Hyaline Casts Few H (NS) 04/27/18 Range/Units 06:15 WBC (4.5-12.0) X10-3/uL Corrected WBC (4.5-12.0) X10(3) RBC (4.30-5.75) x10(6)uL Hgb (13.5-17.8) g/dL Hct (30.0-51.3) % MCV (80-96) fL MCH (27.7-33.6) pg MCHC (32.2-35.4) g/dL RDW (11.5-15.5) % Plt Count (125-369) X10(3)uL MPV (7.4-10.4) fL Add Manual Diff Neutrophils % (Manual) (46-82) % Band Neutrophils % (0-6) % Lymphocytes % (Manual) (13-37) % Monocytes % (Manual) (4-12) % Nucleated RBCs (0-0) /100WBC Sodium (135-145) mmol/L Potassium (3.5-5.3) mmol/L Chloride (100-110) mmol/L Carbon Dioxide (21-32) mmol/L BUN (7-18) mg/dL Creatinine (0.70-1.30) mg/dL Est Cr Clr Drug Dosing Estimated GFR (MDRD) (>60) BUN/Creatinine Ratio (9-20) Glucose (80-116) mg/dL Calcium (8.6-10.2) mg/dL Total Bilirubin (0.1-1.3) mg/dL AST (5-25) IU/L ALT (12-36) U/L Alkaline Phosphatase (56-112) IU/L Troponin I < 0.017 L (<0.017-0.056) ng/mL NT-Pro-B Natriuret Pep (<=450) pg/mL Total Protein (6.0-8.0) g/dL Albumin (3.2-4.6) g/dL Globulin g/dL Albumin/Globulin Ratio Urine Color (YELLOW) Urine Appearance (CLEAR) Urine pH (5.0-6.5) Ur Specific [place] (1.010-1.025) Urine Protein (NEGATIVE) mg/dL Urine Glucose (UA) (NORMAL) mg/dL Urine Ketones (NEGATIVE) mg/dL Urine Occult Blood (NEGATIVE) Urine Nitrite (NEGATIVE) Urine Bilirubin (NEGATIVE) Urine Urobilinogen (NEGATIVE) mg/dL Ur Leukocyte Esterase (NEGATIVE) Urine RBC (0-5) Urine WBC (0-5) Ur Squamous Epith Cells (NS,R,O) Urine Bacteria (NS) Hyaline Casts (NS) Med Orders - Current: Current Medications Acetaminophen (Tylenol) 650 mg PO Q4H PRN PRN Reason: Pain (Mild 1-3)/fever Apixaban (Eliquis) 2.5 mg PO BID [facility] Last Admin: 04/27/18 00:49 Dose: Not Given Aspirin (Halfprin) 81 mg PO DAILY [facility] Ceftriaxone Sodium (Rocephin) 1 gm IVPUSH Q24H [facility] Last Admin: 04/26/18 14:29 Dose: 1 gm Diltiazem HCl (Cardizem) 30 mg PO QID [facility] Last Admin: 04/27/18 00:49 Dose: Not Given Finasteride (Proscar) 5 mg PO DAILY [facility] Azithromycin 500 mg/ Sodium (Chloride) 250 mls @ 250 mls/hr IV Q24H [facility] Last Admin: 04/26/18 14:30 Dose: 250 mls/hr Sodium Chloride (Normal Saline) 1,000 mls @ 100 mls/hr IV ASDIRECTED [facility] Last Admin: 04/27/18 03:11 Dose: 250 mls/hr Levothyroxine Sodium (Levothyroxine) 150 mcg PO DAILY@0600 [facility] Last Admin: 04/27/18 06:04 Dose: Not Given Metoprolol Succinate (Toprol Xl) 100 mg PO BID [facility] Last Admin: 04/27/18 00:50 Dose: Not Given Ondansetron HCl (Zofran Odt) 4 mg PO Q4H PRN PRN Reason: nausea, able to take PO Pantoprazole Sodium (Protonix) 40 mg PO DAILY@0600 [facility] Last Admin: 04/27/18 06:04 Dose: Not Given Polyethylene Glycol (Miralax) 17 gm PO DAILY PRN PRN Reason: Constipation Sodium Chloride (Saline Flush) 10 ml FLUSH ASDIRECTED PRN PRN Reason: Keep Vein Open Last Admin: 04/26/18 14:34 Dose: 10 ml Spironolactone (Aldactone) 12.5 mg PO DAILY [facility] Tamsulosin HCl (Flomax) 0.8 mg PO BEDTIME [facility] Last Admin: 04/27/18 00:49 Dose: Not Given Tiotropium [place] (Spiriva Handihaler) 18 mcg INH DAILY [facility] Tizanidine HCl (Zanaflex) 4 mg PO BID PRN PRN Reason: MUSCLE SPASMS Zolpidem Tartrate (Ambien) 5 mg PO BEDTIME PRN PRN Reason: Sleep Discontinued Medications Diltiazem HCl (Cardizem) 30 mg PO QID [facility] Finasteride (Proscar) 5 mg PO DAILY [facility] Furosemide (Lasix) 60 mg IVPUSH NOW ONE Stop: 04/26/18 13:17 Last Admin: 04/26/18 14:15 Dose: 60 mg Furosemide (Lasix) Confirm Administered Dose 40 mg .ROUTE .STK-MED ONE Stop: 04/26/18 14:19 Last Admin: 04/26/18 18:04 Dose: Not Given Sodium Chloride (Normal Saline) 250 mls @ as directed IV .STK-MED ONE Stop: 04/27/18 03:12 Non-Formulary Medication (Apixaban [Eliquis]) 2.5 mg PO BID [facility] Non-Formulary Medication (Metoprolol Succinate [Toprol Xl]) 100 mg PO BID [facility] Sodium Chloride (Normal Saline) 250 ml IV BOLUS ONE Stop: 04/27/18 02:41 Last Admin: 04/27/18 03:11 Dose: 250 ml - Exam General: Cooperative. No: Alert, Oriented Lungs: Clear to Auscultation, Normal Respiratory Effort Cardiovascular: Irregular Rhythm, Tachycardia Extremities: No Pedal Edema - Problem List & Annotations (1) Atrial fibrillation with RVR SNOMED Code(s): 096052617710787 Code(s): I48.91 - UNSPECIFIED ATRIAL FIBRILLATION Status: Acute Current Visit: No Annotation/Comment:: Digoxin loading, then daily. Discussed benefit of digoxin which is just patients feel better in CHF and rate control without hypotension, but has no mortality benefit and may actually shorten life compared to beta blockers. Patient and son aware. (2) Chronic kidney disease (CKD) stage G3a/A1, moderately decreased glomerular filtration rate (GFR) between 45-59 mL/min/1.73 square meter and albuminuria creatinine ratio less than 30 mg/g SNOMED Code(s): 280546796, 056530897 Code(s): N18.3 - CHRONIC KIDNEY DISEASE, STAGE 3 (MODERATE) Status: Acute Current Visit: No (3) Chronic systolic heart failure SNOMED Code(s): 995382487 Code(s): I50.22 - CHRONIC SYSTOLIC (CONGESTIVE) HEART FAILURE Status: Acute Current Visit: Yes Annotation/Comment:: We will repeat echo tomorrow. (4) Confusion SNOMED Code(s): 624808397 Code(s): R41.0 - DISORIENTATION, UNSPECIFIED Status: Acute Current Visit : Yes (5) Dehydration SNOMED Code(s): 82562622 Code(s): E86.0 - DEHYDRATION Status: Acute Current Visit: Yes (6) Diabetes mellitus type 2 in nonobese SNOMED Code(s): 264339635 Code(s): E11.9 - TYPE 2 DIABETES MELLITUS WITHOUT COMPLICATIONS Status: Acute Current Visit: Yes Annotation/Comment:: QID blood sugar checks. (7) Palliative care status SNOMED Code(s): 206979089 Code(s): Z51.5 - ENCOUNTER FOR PALLIATIVE CARE Status: Acute Current Visit: Yes (8) Pleural effusion, right SNOMED Code(s): 22024169 Code(s): J90 - PLEURAL EFFUSION, NOT ELSEWHERE CLASSIFIED Status: Acute Current Visit: Yes (9) Pneumonia SNOMED Code(s): 355449204 Code(s): J18.9 - PNEUMONIA, UNSPECIFIED ORGANISM Status: Acute Current Visit: Yes - Problem List Review Problem List Initiated/Reviewed/Updated: Yes - My Orders Last 24 Hours: My Active Orders 04/26/18 17:45 Sodium Chloride 0.9% [Normal Saline] 1,000 ml IV ASDIRECTED 04/27/18 09:00 Finasteride [Proscar] 5 mg PO DAILY 04/27/18 Breakfast NPO [Nothing Per Oral Diet] [DIET] - Assessment Assessment:: 1. Patient may be dehydrated. The proBNP course high but I don't see clinically correlating in this situation. We'll start bolusing with 20/50 cc an hour and then reassess until either he is more alert or he starts to become fluid overloaded. If he does not start getting more cognizant. Consider CT the head. Hold off on his by mouth medications at this time. Hopefully he will respond to the fluids. - Plan Plan:: 1. Admit for inpatient. 2. Rocephin/Zithromax, blood cultures 3. Admitting doctor gave him 80 of IV Lasix. 4. I/O daily weights. 5. I started some of his home meds initially his diltiazem, metoprolol and his blood thinner. 6 His own blood thinner for VVT prophylaxis. If he cannot swallow pills and will switch over to Lovenox. 7. NPO 8. Patients family states he is a DNR/DNI. 9. Blood cultures and repeat all his labs in the a.m.
[2018-04-27] MEDS ORDERED: Finasteride 5 MG Tab PO SCH (09:00)
[2018-04-27] MEDS ORDERED: Non-Formulary Medication 1 Each (Atorvastatin [Lipitor] 80 MG) PO SCH (09:00)
[2018-04-27] MEDS ORDERED: Clopidogrel 75 MG Tab PO SCH (09:00)
[2018-04-27] MEDS ORDERED: Metoprolol Succinate 50 MG Tab.ER PO SCH (09:00)
[2018-04-27] MEDS ORDERED: Tiotropium Inhaler 18 MCG Inhalation Powder Cap Kit of 5 INH SCH (09:00)
[2018-04-27] MEDS ORDERED: Enoxaparin 30 MG/0.3 ML Syringe SUBCUT SCH (10:00)
[2018-04-27] MEDS: Spironolactone 25 MG Tab PO SCH (10:05)
[2018-04-27] MEDS: Aspirin 81 MG Tab.EC PO SCH (10:06)
[2018-04-27] MEDS: Finasteride 5 MG Tab PO SCH (10:06)
--- NOTE | 2018-04-27 11:37 | CT ---
INDICATION: Decreased level of consciousness, history of recent fall. CT HEAD WITHOUT CONTRAST: Spiral axial examination of the brain was obtained with sagittal and coronal reconstructions, 04/27/18, and compared with . Total exam DLP = 1,399.62 mGy-cm. Changes are noted at the atlantoodontoid joint of moderate to moderately severe degree. Vertebral artery calcifications are again present. Internal carotid artery calcifications are also noted. The paranasal sinuses showed evidence of thickening of the lining of the left frontal air cell with complete opacification of the left maxillary antrum noted , along with what appears to be a large medial wall window into the nasal cavity from the left maxillary antrum. There is also thickening of the lining of the main sphenoidal air cell with the possibility of an air fluid level in that sinus, suggesting the possibility of acute sinusitis in the sphenoidal air cell. This appearance was not present on the previous examination, which showed a more focal area of thickening of the lining with a frothy appearance. The mastoid air cells appear to be well-aerated. No cranial abnormality was seen. No shift of midline structures was seen. The ventricles are moderately prominent, compatible with a mild degree of central atrophy and the patients age. 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 Minimal low density areas are noted in the white matter, raising question of a minimal degree of microvascular disease. No definite acute abnormality was seen - no bleeding site or hematoma was present. There is suggestion of a lacunar infarct at the external capsule on the left anteriorly, unchanged from the previous examination. IMPRESSION: 1. No definite acute intracranial abnormalities. 2. Slightly progressive minimal microvascular disease type changes in the white matter - correlate clinically, as other cause of leukoencephalopathy cannot be excluded. 3. Cerebrovascular disease with arterial calcification. 4. Mild central atrophy. 5. Possible acute sphenoidal sinusitis. Also noted was opacification of the left maxillary antrum with what looks like postsurgical change in the medial wall but could be erosion - correlate clinically. This does appear to be unchanged from the previous study. Report was called to Dr. Alvarez Sommers at 1000 hours on 04/27/18. [facility]
[2018-04-27] MEDS: Azithromycin 500 MG in Sodium Chloride 0.9% 250 ML IV SCH (14:15)
[2018-04-27] MEDS: cefTRIAXone 1 GM Vial IVPUSH SCH (16:11)
[2018-04-28] MEDS: Pantoprazole 40 MG Tab.CR PO SCH (05:47)
[2018-04-28] MEDS: Levothyroxine 150 MCG Tab PO SCH (05:47)
[2018-04-28] MEDS: Sodium Chloride 0.9% 1,000 ML IV SCH (07:49)
[2018-04-28] MEDS ORDERED: Non-Formulary Medication 1 Each (Omeprazole [Omeprazole] 20 MG) PO SCH (09:00)
--- NOTE | 2018-04-28 09:00 | PCM.PN ---
- General Info Date of Service: 04/28/18 Admission Dx/Problem (Free Text): Patient's confused. He says he is a little short of breath. He denies coughing, fevers, runny nose, cough. - Patient Data Vitals - Most Recent: Last Vital Signs Temp 97.7 F 04/28/18 04:00 Pulse 106 H 04/28/18 04:00 Resp 18 04/28/18 04:00 BP 116/67 04/28/18 04:00 Pulse Ox 95 04/28/18 04:00 Weight - Most Recent: 154 lb 12.8 oz I&O - Last 24 Hours: Intake & Output 04/27/18 04/28/18 04/28/18 22:59 06:59 14:59 Intake Total 1448 767 Balance 1448 767 Lab Results Last 24 Hours: Laboratory Results - last 24 hr 04/27/18 04/28/18 04/28/18 Range/Units 17:00 06:00 06:00 WBC 16.8 H (4.5-12.0) X10-3/uL RBC 3.59 L (4.30-5.75) x10(6)uL Hgb 10.8 L (13.5-17.8) g/dL Hct 32.7 (30.0-51.3) % MCV 91.1 (80-96) fL MCH 30.1 (27.7-33.6) pg MCHC 33.0 (32.2-35.4) g/dL RDW 15.6 H (11.5-15.5) % Plt Count 333 (125-369) X10(3)uL MPV 8.2 (7.4-10.4) fL Add Manual Diff Yes Neutrophils % (Manual) 94 H (46-82) % Lymphocytes % (Manual) 3 L (13-37) % Monocytes % (Manual) 3 L (4-12) % Sodium 136 (135-145) mmol/L Potassium 4.1 (3.5-5.3) mmol/L Chloride 99 L (100-110) mmol/L Carbon Dioxide 32 (21-32) mmol/L BUN 60 H (7-18) mg/dL Creatinine 1.5 H (0.70-1.30) mg/dL Est Cr Clr Drug Dosing 34.46 mL/min Estimated GFR (MDRD) 44 L (>60) BUN/Creatinine Ratio 40.0 H (9-20) Glucose 194 H (80-116) mg/dL POC Glucose 199 H (80-116) mg/dL Calcium 8.4 L (8.6-10.2) mg/dL Total Bilirubin 0.5 (0.1-1.3) mg/dL AST 24 D (5-25) IU/L ALT 37 H (12-36) U/L Alkaline Phosphatase 118 H (56-112) IU/L Total Protein 6.2 (6.0-8.0) g/dL Albumin 1.9 L (3.2-4.6) g/dL Globulin 4.3 g/dL Albumin/Globulin Ratio 0.4 [place] Results Last 24 Hours: Microbiology 04/26/18 13:30 Aerobic Blood Culture - Preliminary Blood - Venous NO GROWTH AFTER 1 DAY Anaerobic Blood Culture - Preliminary NO GROWTH AFTER 1 DAY 04/26/18 13:35 Aerobic Blood Culture - Preliminary Blood - Venous - Lab Draw NO GROWTH AFTER 1 DAY Anaerobic Blood Culture - Preliminary NO GROWTH AFTER 1 DAY Med Orders - Current: Current Medications Acetaminophen (Tylenol) 650 mg PO Q4H PRN PRN Reason: Pain (Mild 1-3)/fever Apixaban (Eliquis) 2.5 mg PO BID [facility] Last Admin: 04/27/18 20:26 Dose: 2.5 mg Aspirin (Halfprin) 81 mg PO DAILY [facility] Last Admin: 04/27/18 10:06 Dose: 81 mg Ceftriaxone Sodium (Rocephin) 1 gm IVPUSH Q24H [facility] Last Admin: 04/27/18 16:11 Dose: 1 gm Diltiazem HCl (Cardizem) 30 mg PO QID [facility] Last Admin: 04/27/18 20:26 Dose: 30 mg Finasteride (Proscar) 5 mg PO DAILY [facility] Last Admin: 04/27/18 10:06 Dose: 5 mg Azithromycin 500 mg/ Sodium (Chloride) 250 mls @ 250 mls/hr IV Q24H [facility] Last Admin: 04/27/18 14:15 Dose: 250 mls/hr Sodium Chloride (Normal Saline) 1,000 mls @ 100 mls/hr IV ASDIRECTED [facility] Last Admin: 04/28/18 07:49 Dose: 100 mls/hr Levothyroxine Sodium (Levothyroxine) 150 mcg PO DAILY@0600 [facility] Last Admin: 04/28/18 05:47 Dose: 150 mcg Metoprolol Succinate (Toprol Xl) 100 mg PO BID [facility] Last Admin: 04/27/18 20:27 Dose: 100 mg Ondansetron HCl (Zofran Odt) 4 mg PO Q4H PRN PRN Reason: nausea, able to take PO Pantoprazole Sodium (Protonix) 40 mg PO DAILY@0600 [facility] Last Admin: 04/28/18 05:47 Dose: 40 mg Polyethylene Glycol (Miralax) 17 gm PO DAILY PRN PRN Reason: Constipation Sodium Chloride (Saline Flush) 10 ml FLUSH ASDIRECTED PRN PRN Reason: Keep Vein Open Last Admin: 04/26/18 14:34 Dose: 10 ml Spironolactone (Aldactone) 12.5 mg PO DAILY [facility] Last Admin: 04/27/18 10:05 Dose: 12.5 mg Tamsulosin HCl (Flomax) 0.8 mg PO BEDTIME [facility] Last Admin: 04/27/18 20:27 Dose: 0.8 mg Tiotropium [place] (Spiriva Handihaler) 18 mcg INH DAILY [facility] Tizanidine HCl (Zanaflex) 4 mg PO BID PRN PRN Reason: MUSCLE SPASMS Zolpidem Tartrate (Ambien) 5 mg PO BEDTIME PRN PRN Reason: Sleep Discontinued Medications Diltiazem HCl (Cardizem) 30 mg PO QID [facility] Finasteride (Proscar) 5 mg PO DAILY [facility] Furosemide (Lasix) 60 mg IVPUSH NOW ONE Stop: 04/26/18 13:17 Last Admin: 04/26/18 14:15 Dose: 60 mg Furosemide (Lasix) Confirm Administered Dose 40 mg .ROUTE .STK-MED ONE Stop: 04/26/18 14:19 Last Admin: 04/26/18 18:04 Dose: Not Given Sodium Chloride (Normal Saline) 250 mls @ as directed IV .STK-MED ONE Stop: 04/27/18 03:12 Non-Formulary Medication (Apixaban [Eliquis]) 2.5 mg PO BID [facility] Non-Formulary Medication (Metoprolol Succinate [Toprol Xl]) 100 mg PO BID [facility] Non-Formulary Medication (Omeprazole [Omeprazole]) 20 mg PO DAILY [facility] Sodium Chloride (Normal Saline) 250 ml IV BOLUS ONE Stop: 04/27/18 02:41 Last Admin: 04/27/18 03:11 Dose: 250 ml Tiotropium [place] (Spiriva Handihaler) 18 mcg INH DAILY [facility] Last Admin: 04/27/18 10:14 Dose: 1 cap - Exam General: Alert, Oriented, Cooperative Lungs: Normal Respiratory Effort, Decreased Breath Sounds (Right base) Cardiovascular: Regular Rate, Irregular Rhythm Extremities: No Pedal Edema - Problem List & Annotations (1) Atrial fibrillation with RVR SNOMED Code(s): 429865432375336 Code(s): I48.91 - UNSPECIFIED ATRIAL FIBRILLATION Status: Acute Current Visit: No Annotation/Comment:: Digoxin loading, then daily. Discussed benefit of digoxin which is just patients feel better in CHF and rate control without hypotension, but has no mortality benefit and may actually shorten life compared to beta blockers. Patient and son aware. (2) Chronic kidney disease (CKD) stage G3a/A1, moderately decreased glomerular filtration rate (GFR) between 45-59 mL/min/1.73 square meter and albuminuria creatinine ratio less than 30 mg/g SNOMED Code(s): 051338088, 958276169 Code(s): N18.3 - CHRONIC KIDNEY DISEASE, STAGE 3 (MODERATE) Status: Acute Current Visit: No (3) Chronic systolic heart failure SNOMED Code(s): 574924183 Code(s): I50.22 - CHRONIC SYSTOLIC (CONGESTIVE) HEART FAILURE Status: Acute Current Visit: Yes Annotation/Comment:: We will repeat echo tomorrow. (4) Confusion SNOMED Code(s): 979266828 Code(s): R41.0 - DISORIENTATION, UNSPECIFIED Status: Acute Current Visit : Yes (5) Dehydration SNOMED Code(s): 36397798 Code(s): E86.0 - DEHYDRATION Status: Acute Current Visit: Yes (6) Diabetes mellitus type 2 in nonobese SNOMED Code(s): 349949112 Code(s): E11.9 - TYPE 2 DIABETES MELLITUS WITHOUT COMPLICATIONS Status: Acute Current Visit: Yes Annotation/Comment:: QID blood sugar checks. (7) Palliative care status SNOMED Code(s): 951060911 Code(s): Z51.5 - ENCOUNTER FOR PALLIATIVE CARE Status: Acute Current Visit: Yes (8) Pleural effusion, right SNOMED Code(s): 30248736 Code(s): J90 - PLEURAL EFFUSION, NOT ELSEWHERE CLASSIFIED Status: Acute Current Visit: Yes (9) Pneumonia SNOMED Code(s): 502884054 Code(s): J18.9 - PNEUMONIA, UNSPECIFIED ORGANISM Status: Acute Current Visit: Yes - Problem List Review Problem List Initiated/Reviewed/Updated: Yes - My Orders Last 24 Hours: My Active Orders 04/27/18 09:00 Finasteride [Proscar] 5 mg PO DAILY 04/27/18 09:28 Accu Check [Blood Glucose Check, Bedside] [RC] BIDAC 04/27/18 Dinner Consistent Carbohydrate Diet [DIET] 04/28/18 09:00 Tiotropium [Spiriva HandiHaler] 18 mcg INH DAILY 04/28/18 18:24 Chest 2V [CR] Routine - Plan Plan:: 1. DC IV fluids and monitor I's and O's closely. 2. PT/OT. Up in the chair if possible. 3. Chest x-ray today 2 views.
[2018-04-28] MEDS: Spironolactone 25 MG Tab PO SCH (10:05)
[2018-04-28] MEDS: Diltiazem IR 30 MG Tab PO SCH ×4 (10:06→20:47)
[2018-04-28] MEDS: Apixaban 5 MG Tab PO SCH ×2 (10:06→20:48)
[2018-04-28] MEDS: Finasteride 5 MG Tab PO SCH (10:07)
[2018-04-28] MEDS: Aspirin 81 MG Tab.EC PO SCH (10:07)
[2018-04-28] MEDS: Tiotropium Inhaler 18 MCG Inhalation Powder Cap Kit of 5 INH SCH (10:08)
[2018-04-28] MEDS: Metoprolol Succinate 100 MG Tab.ER PO SCH ×2 (10:10→20:50)
[2018-04-28] MEDS ORDERED: Azithromycin 500 MG in Sodium Chloride 0.9% 250 ML IV SCH ×2 (11:45→13:30)
--- NOTE | 2018-04-28 13:05 | CR ---
INDICATION: Hypoxia. CHEST: An AP and two lateral views of the chest were obtained 04/28/18 and compared with 04/26/18 and 09/17/17. Bilateral pleural parenchymal changes are noted with an appearance of somewhat increased infiltrate in the lower lung field on the left. Continued bilateral pleural effusions, larger on the right, are suggested, although the right pleural effusion may be subpulmonic or loculated, rather than movable. This could be determined by a right lateral decubitus view of the chest - right side down lateral decubitus. The possibility of CHF is also difficult to exclude with somewhat prominent appearing upper lung field pulmonary vasculature and cardiomegaly. The aorta is tortuous with calcification in the arch and descending portion. What appears to be a large fixed hiatal hernia is suggested. Diminished bone density is suggested, compatible with osteoporosis or osteomalacia - correlate clinically. Infiltrate is again suggested in the mid lung schneider and appears minimally more prominent on the left in the upper middle lung field than previously. IMPRESSION: Continued bilateral pleural parenchymal changes, which may represent pneumonia, possibly aspiration type, with increased infiltrate suggested at the left lung base and possibly minimally in the upper mid lung field on the left. Also, the possibility of CHF and interstitial lung edema is a consideration. MTDD
[2018-04-28] MEDS: cefTRIAXone 1 GM Vial IVPUSH SCH (15:38)
[2018-04-28] MEDS: Sodium Chloride 0.9% 10 ML Syringe FLUSH PRN (15:46)
[2018-04-28] MEDS ORDERED: Furosemide 20 MG Tab PO ONE (17:33)
[2018-04-28] MEDS: Tamsulosin 0.4 MG Cap.ER PO SCH (20:49)
[2018-04-29] MEDS: Levothyroxine 150 MCG Tab PO SCH (06:04)
[2018-04-29] MEDS: Pantoprazole 40 MG Tab.CR PO SCH (06:04)
--- NOTE | 2018-04-29 09:11 | PCM.PN ---
- General Info Date of Service: 04/29/18 Admission Dx/Problem (Free Text): Patient just woke up so he's anteromedially with nods yes or no. He denies shortness of breath, cough, chest pain. Is not talk at this time. - Patient Data Vitals - Most Recent: Last Vital Signs Temp 97 F 04/29/18 05:52 Pulse 92 04/29/18 05:52 Resp 24 H 04/29/18 05:52 BP 111/76 04/29/18 05:52 Pulse Ox 94 L 04/29/18 05:52 Weight - Most Recent: 154 lb 12.8 oz Lab Results Last 24 Hours: Laboratory Results - last 24 hr 04/28/18 04/28/18 04/29/18 Range/Units 05:52 17:01 05:45 WBC (4.5-12.0) X10-3/uL RBC (4.30-5.75) x10(6)uL Hgb (13.5-17.8) g/dL Hct (30.0-51.3) % MCV (80-96) fL MCH (27.7-33.6) pg MCHC (32.2-35.4) g/dL RDW (11.5-15.5) % Plt Count (125-369) X10(3)uL MPV (7.4-10.4) fL Add Manual Diff Neutrophils % (Manual) (46-82) % Band Neutrophils % (0-6) % Lymphocytes % (Manual) (13-37) % Monocytes % (Manual) (4-12) % Anisocytosis Sodium (135-145) mmol/L Potassium (3.5-5.3) mmol/L Chloride (100-110) mmol/L Carbon Dioxide (21-32) mmol/L BUN (7-18) mg/dL Creatinine (0.70-1.30) mg/dL Est Cr Clr Drug Dosing mL/min Estimated GFR (MDRD) (>60) BUN/Creatinine Ratio (9-20) Glucose (80-116) mg/dL POC Glucose 202 H 255 H 237 H (80-116) mg/dL Calcium (8.6-10.2) mg/dL 04/29/18 04/29/18 Range/Units 06:10 06:10 WBC 17.8 H (4.5-12.0) X10-3/uL RBC 3.73 L (4.30-5.75) x10(6)uL Hgb 11.1 L (13.5-17.8) g/dL Hct 33.9 (30.0-51.3) % MCV 90.9 (80-96) fL MCH 29.8 (27.7-33.6) pg MCHC 32.7 (32.2-35.4) g/dL RDW 16.1 H (11.5-15.5) % Plt Count 398 H (125-369) X10(3)uL MPV 8.4 (7.4-10.4) fL Add Manual Diff Yes Neutrophils % (Manual) 90 H (46-82) % Band Neutrophils % 3 (0-6) % Lymphocytes % (Manual) 5 L (13-37) % Monocytes % (Manual) 2 L (4-12) % Anisocytosis Moderate H Sodium 136 (135-145) mmol/L Potassium 4.7 (3.5-5.3) mmol/L Chloride 100 (100-110) mmol/L Carbon Dioxide 31 (21-32) mmol/L BUN 75 H D (7-18) mg/dL Creatinine 1.9 H (0.70-1.30) mg/dL Est Cr Clr Drug Dosing 27.20 mL/min Estimated GFR (MDRD) 34 L (>60) BUN/Creatinine Ratio 39.5 H (9-20) Glucose 206 H (80-116) mg/dL POC Glucose (80-116) mg/dL Calcium 8.7 (8.6-10.2) mg/dL [facility] Results Last 24 Hours: Microbiology 04/26/18 13:35 Aerobic Blood Culture - Preliminary Blood - Venous - Lab Draw NO GROWTH AFTER 2 DAYS Anaerobic Blood Culture - Preliminary NO GROWTH AFTER 2 DAYS 04/26/18 13:30 Aerobic Blood Culture - Preliminary Blood - Venous NO GROWTH AFTER 2 DAYS Anaerobic Blood Culture - Preliminary NO GROWTH AFTER 2 DAYS Med Orders - Current: Current Medications Acetaminophen (Tylenol) 650 mg PO Q4H PRN PRN Reason: Pain (Mild 1-3)/fever Apixaban (Eliquis) 2.5 mg PO BID [facility] Last Admin: 04/28/18 20:48 Dose: 2.5 mg Aspirin (Halfprin) 81 mg PO DAILY [facility] Last Admin: 04/28/18 10:07 Dose: 81 mg Diltiazem HCl (Cardizem) 30 mg PO QID [facility] Last Admin: 04/28/18 20:47 Dose: 30 mg Finasteride (Proscar) 5 mg PO DAILY [facility] Last Admin: 04/28/18 10:07 Dose: 5 mg Levothyroxine Sodium (Levothyroxine) 150 mcg PO DAILY@0600 [facility] Last Admin: 04/29/18 06:04 Dose: 150 mcg Metoprolol Succinate (Toprol Xl) 100 mg PO BID [facility] Last Admin: 04/28/18 20:50 Dose: Not Given Ondansetron HCl (Zofran Odt) 4 mg PO Q4H PRN PRN Reason: nausea, able to take PO Pantoprazole Sodium (Protonix) 40 mg PO DAILY@0600 [facility] Last Admin: 04/29/18 06:04 Dose: 40 mg Polyethylene Glycol (Miralax) 17 gm PO DAILY PRN PRN Reason: Constipation Sodium Chloride (Saline Flush) 10 ml FLUSH ASDIRECTED PRN PRN Reason: Keep Vein Open Last Admin: 04/28/18 15:46 Dose: 10 ml Spironolactone (Aldactone) 12.5 mg PO DAILY [facility] Last Admin: 04/28/18 10:05 Dose: 12.5 mg Tamsulosin HCl (Flomax) 0.8 mg PO BEDTIME [facility] Last Admin: 04/28/18 20:49 Dose: 0.8 mg Tiotropium [place] (Spiriva Handihaler) 18 mcg INH DAILY [facility] Last Admin: 04/28/18 10:08 Dose: 2 inhalation Tizanidine HCl (Zanaflex) 4 mg PO BID PRN PRN Reason: MUSCLE SPASMS Zolpidem Tartrate (Ambien) 5 mg PO BEDTIME PRN PRN Reason: Sleep Discontinued Medications Ceftriaxone Sodium (Rocephin) 1 gm IVPUSH Q24H [facility] Last Admin: 04/28/18 15:38 Dose: 1 gm Diltiazem HCl (Cardizem) 30 mg PO QID [facility] Finasteride (Proscar) 5 mg PO DAILY [facility] Furosemide (Lasix) 60 mg IVPUSH NOW ONE Stop: 04/26/18 13:17 Last Admin: 04/26/18 14:15 Dose: 60 mg Furosemide (Lasix) Confirm Administered Dose 40 mg .ROUTE .STK-MED ONE Stop: 04/26/18 14:19 Last Admin: 04/26/18 18:04 Dose: Not Given Furosemide (Lasix) 20 mg PO ONETIME ONE Stop: 04/28/18 17:34 Last Admin: 04/28/18 18:25 Dose: 20 mg Azithromycin 500 mg/ Sodium (Chloride) 250 mls @ 250 mls/hr IV Q24H [facility] Last Admin: 04/27/18 14:15 Dose: 250 mls/hr Sodium Chloride (Normal Saline) 1,000 mls @ 100 mls/hr IV ASDIRECTED [facility] Last Admin: 04/28/18 07:49 Dose: 100 mls/hr Sodium Chloride (Normal Saline) 250 mls @ as directed IV .K-MED ONE Stop: 04/27/18 03:12 Azithromycin 500 mg/ Sodium (Chloride) 250 mls @ 250 mls/hr IV Q24H [facility] Last Admin: 04/28/18 13:36 Dose: 250 mls/hr Non-Formulary Medication (Apixaban [Eliquis]) 2.5 mg PO BID [facility] Non-Formulary Medication (Metoprolol Succinate [Toprol Xl]) 100 mg PO BID [facility] Non-Formulary Medication (Omeprazole [Omeprazole]) 20 mg PO DAILY [facility] Sodium Chloride (Normal Saline) 250 ml IV BOLUS ONE Stop: 04/27/18 02:41 Last Admin: 04/27/18 03:11 Dose: 250 ml Tiotropium [place] (Spiriva Handihaler) 18 mcg INH DAILY [facility] Last Admin: 04/27/18 10:14 Dose: 1 cap - Exam General: Alert, Cooperative Lungs: Clear to Auscultation, Normal Respiratory Effort Cardiovascular: Regular Rate, Irregular Rhythm Extremities: Pedal Edema (+1 or less) - Problem List & Annotations (1) Atrial fibrillation with RVR SNOMED Code(s): 475887397859901 Code(s): I48.91 - UNSPECIFIED ATRIAL FIBRILLATION Status: Acute Current Visit: No Annotation/Comment:: Digoxin loading, then daily. Discussed benefit of digoxin which is just patients feel better in CHF and rate control without hypotension, but has no mortality benefit and may actually shorten life compared to beta blockers. Patient and son aware. (2) Chronic kidney disease (CKD) stage G3a/A1, moderately decreased glomerular filtration rate (GFR) between 45-59 mL/min/1.73 square meter and albuminuria creatinine ratio less than 30 mg/g SNOMED Code(s): 839739683, 931774474 Code(s): N18.3 - CHRONIC KIDNEY DISEASE, STAGE 3 (MODERATE) Status: Acute Current Visit: No (3) Chronic systolic heart failure SNOMED Code(s): 550626761 Code(s): I50.22 - CHRONIC SYSTOLIC (CONGESTIVE) HEART FAILURE Status: Acute Current Visit: Yes Annotation/Comment:: We will repeat echo tomorrow. (4) Confusion SNOMED Code(s): 659702621 Code(s): R41.0 - DISORIENTATION, UNSPECIFIED Status: Acute Current Visit : Yes (5) Dehydration SNOMED Code(s): 79177931 Code(s): E86.0 - DEHYDRATION Status: Acute Current Visit: Yes (6) Diabetes mellitus type 2 in nonobese SNOMED Code(s): 281154184 Code(s): E11.9 - TYPE 2 DIABETES MELLITUS WITHOUT COMPLICATIONS Status: Acute Current Visit: Yes Annotation/Comment:: QID blood sugar checks. (7) Palliative care status SNOMED Code(s): 757270060 Code(s): Z51.5 - ENCOUNTER FOR PALLIATIVE CARE Status: Acute Current Visit: Yes (8) Pleural effusion, right SNOMED Code(s): 31180258 Code(s): J90 - PLEURAL EFFUSION, NOT ELSEWHERE CLASSIFIED Status: Acute Current Visit: Yes (9) Pneumonia SNOMED Code(s): 067032114 Code(s): J18.9 - PNEUMONIA, UNSPECIFIED ORGANISM Status: Acute Current Visit: Yes - Problem List Review Problem List Initiated/Reviewed/Updated: Yes - My Orders Last 24 Hours: My Active Orders 04/28/18 09:00 Consult to Occupational Therapy [OT Evaluation and Treatment] [CONS] Routine Consult to Physical Therapy [PT Evaluation and Treatment] [CONS] Routine Tiotropium [Spiriva HandiHaler] 18 mcg INH DAILY 04/28/18 09:01 Convert IV to Saline Lock [OM.PC] Routine 04/29/18 09:15 Piperacillin/Tazobactam [Zosyn] 3.375 gm Sodium Chloride 0.9% [Normal Saline] 50 ml IV Q6H metroNIDAZOLE/Normal Saline [Flagyl 500 MG in NS 100 ML] 500 mg Premix Bag 1 bag IV Q8H - Plan Plan:: 1. X-ray report shows possible aspiration so stop Rocephin and Zithromax and start Zosyn and metronidazole IV. 2. I gave some Lasix last day but I'm just hold off and continue to do eyes nose and daily weights. 3. Continue PT/OT.
[2018-04-29] MEDS: Sodium Chloride 0.9% 1,000 ML IV SCH (09:27)
[2018-04-29] MEDS ORDERED: metroNIDAZOLE/Normal Saline 500 MG in Premix Bag 1 BAG IV SCH (10:00)
[2018-04-29] MEDS: Piperacillin/Tazobactam 2.25 GM in Sodium Chloride 0.9% 50 ML IV SCH ×2 (11:05→17:38)
[2018-04-29] MEDS: Apixaban 5 MG Tab PO SCH ×2 (11:06→23:01)
[2018-04-29] MEDS: Finasteride 5 MG Tab PO SCH (11:06)
[2018-04-29] MEDS: Aspirin 81 MG Tab.EC PO SCH (11:06)
[2018-04-29] MEDS: Diltiazem IR 30 MG Tab PO SCH ×4 (11:06→23:01)
[2018-04-29] MEDS: Spironolactone 25 MG Tab PO SCH (11:06)
[2018-04-29] MEDS: Metoprolol Succinate 100 MG Tab.ER PO SCH ×2 (11:06→23:04)
[2018-04-29] MEDS: Tiotropium Inhaler 18 MCG Inhalation Powder Cap Kit of 5 INH SCH (11:06)
[2018-04-29] MEDS ORDERED: Morphine 2 MG/ML Syringe IVPUSH PRN (17:08)
[2018-04-29] MEDS ORDERED: LORazepam 2 MG/ML SDV IVPUSH PRN (17:15)
[2018-04-29] MEDS ORDERED: LORazepam Conc Solution 2 MG/ML 30 ML Bottle PO PRN (17:17)
[2018-04-29] MEDS ORDERED: Morphine Oral Concentrate 20 MG/ML 30 ML Bottle PO PRN (17:24)
--- NOTE | 2018-04-29 17:58 | PCM.SN ---
- Free Text/Narrative Note: The patient has been very sedated today. In spite of some IV fluids. The family including his decided to consult hospice and keep him comfortable. At this point they want to keep in the IV so they can get him MS for the IV. When it's time to come out of her infiltrates then go to sublingual MS. There was stopped IV antibiotics which I did. They're also worried about him urinating. They're asking for your watch him if he is urinating do nothing but if not consider Smith catheter for comfort. Apparently he had something like a urethral stricture that he self cathetered once a week to keep it open.
[2018-04-29] MEDS: Sodium Chloride 0.9% 10 ML Syringe FLUSH PRN ×2 (20:30→22:59)
[2018-04-29] MEDS: Morphine 2 MG/ML Syringe IVPUSH PRN (22:55)
[2018-04-29] MEDS: Tamsulosin 0.4 MG Cap.ER PO SCH (23:04)
[2018-04-30] MEDS: Levothyroxine 150 MCG Tab PO SCH (07:34)
[2018-04-30] MEDS: Pantoprazole 40 MG Tab.CR PO SCH (07:34)
--- NOTE | 2018-04-30 09:14 | PCM.PN ---
- General Info Date of Service: 04/30/18 Subjective Update: Patient on comfort measures.Not responding Functional Status: Reports: Pain Controlled - Patient Data Vitals - Most Recent: Last Vital Signs Temp 97.7 F 04/30/18 00:00 Pulse 64 04/30/18 00:00 Resp 20 04/30/18 00:00 BP 106/65 04/30/18 00:00 Pulse Ox 98 04/30/18 00:00 Weight - Most Recent: 70.216 kg I&O - Last 24 Hours: Intake & Output 04/29/18 04/30/18 04/30/18 22:59 06:59 14:59 Intake Total 200 0 Balance 200 0 Lab Results Last 24 Hours: Laboratory Results - last 24 hr 04/30/18 Range/Units 06:16 POC Glucose 201 H (80-116) mg/dL [facility] Results Last 24 Hours: Microbiology 04/26/18 13:35 Aerobic Blood Culture - Preliminary Blood - Venous - Lab Draw NO GROWTH AFTER 3 DAYS Anaerobic Blood Culture - Preliminary NO GROWTH AFTER 3 DAYS 04/26/18 13:30 Aerobic Blood Culture - Preliminary Blood - Venous NO GROWTH AFTER 3 DAYS Anaerobic Blood Culture - Preliminary NO GROWTH AFTER 3 DAYS Med Orders - Current: Current Medications Acetaminophen (Tylenol) 650 mg PO Q4H PRN PRN Reason: Pain (Mild 1-3)/fever Apixaban (Eliquis) 2.5 mg PO BID [facility] Last Admin: 04/29/18 23:01 Dose: Not Given Aspirin (Halfprin) 81 mg PO DAILY [facility] Last Admin: 04/29/18 11:06 Dose: Not Given Diltiazem HCl (Cardizem) 30 mg PO QID [facility] Last Admin: 04/29/18 23:01 Dose: Not Given Finasteride (Proscar) 5 mg PO DAILY [facility] Last Admin: 04/29/18 11:06 Dose: Not Given Levothyroxine Sodium (Levothyroxine) 150 mcg PO DAILY@0600 [facility] Last Admin: 04/30/18 07:34 Dose: Not Given Lorazepam (Ativan) 0.5 mg IVPUSH Q2H PRN PRN Reason: Dyspnea Last Admin: 04/29/18 20:29 Dose: 0.5 mg Lorazepam (Ativan) 0.5 mg PO Q2H PRN PRN Reason: Dyspnea Metoprolol Succinate (Toprol Xl) 100 mg PO BID [facility] Last Admin: 04/29/18 23:04 Dose: Not Given Morphine Sulfate (Morphine 20 Mg/Ml Soln) 5 mg PO Q30M PRN PRN Reason: Pain Morphine Sulfate (Morphine) 2 mg IVPUSH Q1H PRN PRN Reason: Pain Last Admin: 04/29/18 22:55 Dose: 2 mg Ondansetron HCl (Zofran Odt) 4 mg PO Q4H PRN PRN Reason: nausea, able to take PO Pantoprazole Sodium (Protonix) 40 mg PO DAILY@0600 [facility] Last Admin: 04/30/18 07:34 Dose: Not Given Polyethylene Glycol (Miralax) 17 gm PO DAILY PRN PRN Reason: Constipation Sodium Chloride (Saline Flush) 10 ml FLUSH ASDIRECTED PRN PRN Reason: Keep Vein Open Last Admin: 04/29/18 22:59 Dose: 10 ml Spironolactone (Aldactone) 12.5 mg PO DAILY [facility] Last Admin: 04/29/18 11:06 Dose: Not Given Tamsulosin HCl (Flomax) 0.8 mg PO BEDTIME [facility] Last Admin: 04/29/18 23:04 Dose: Not Given Tiotropium [place] (Spiriva Handihaler) 18 mcg INH DAILY [facility] Last Admin: 04/29/18 11:06 Dose: Not Given Tizanidine HCl (Zanaflex) 4 mg PO BID PRN PRN Reason: MUSCLE SPASMS Zolpidem Tartrate (Ambien) 5 mg PO BEDTIME PRN PRN Reason: Sleep Discontinued Medications Ceftriaxone Sodium (Rocephin) 1 gm IVPUSH Q24H [facility] Last Admin: 04/28/18 15:38 Dose: 1 gm Diltiazem HCl (Cardizem) 30 mg PO QID [facility] Finasteride (Proscar) 5 mg PO DAILY [facility] Furosemide (Lasix) 60 mg IVPUSH NOW ONE Stop: 04/26/18 13:17 Last Admin: 04/26/18 14:15 Dose: 60 mg Furosemide (Lasix) Confirm Administered Dose 40 mg .ROUTE .STK-MED ONE Stop: 04/26/18 14:19 Last Admin: 04/26/18 18:04 Dose: Not Given Furosemide (Lasix) 20 mg PO ONETIME ONE Stop: 04/28/18 17:34 Last Admin: 04/28/18 18:25 Dose: 20 mg Azithromycin 500 mg/ Sodium (Chloride) 250 mls @ 250 mls/hr IV Q24H [facility] Last Admin: 04/27/18 14:15 Dose: 250 mls/hr Sodium Chloride (Normal Saline) 1,000 mls @ 100 mls/hr IV ASDIRECTED [facility] Last Admin: 04/29/18 09:27 Dose: 999 mls/hr Sodium Chloride (Normal Saline) 250 mls @ as directed IV .STK-MED ONE Stop: 04/27/18 03:12 Azithromycin 500 mg/ Sodium (Chloride) 250 mls @ 250 mls/hr IV Q24H [facility] Last Admin: 04/28/18 13:36 Dose: 250 mls/hr Metronidazole 500 mg/ Premix 100 mls @ 100 mls/hr IV Q8H [facility] Last Admin: 04/29/18 11:42 Dose: 100 mls/hr Piperacillin Sod/Tazobactam (Sod 2.25 gm/ Sodium Chloride) 50 mls @ 100 mls/hr IV Q6H [facility] Last Admin: 04/29/18 17:38 Dose: Not Given Morphine Sulfate (Morphine) 1 mg IVPUSH Q1H PRN PRN Reason: Pain Non-Formulary Medication (Apixaban [Eliquis]) 2.5 mg PO BID [facility] Non-Formulary Medication (Metoprolol Succinate [Toprol Xl]) 100 mg PO BID [facility] Non-Formulary Medication (Omeprazole [Omeprazole]) 20 mg PO DAILY [facility] Sodium Chloride (Normal Saline) 250 ml IV BOLUS ONE Stop: 04/27/18 02:41 Last Admin: 04/27/18 03:11 Dose: 250 ml Tiotropium [place] (Spiriva Handihaler) 18 mcg INH DAILY [facility] Last Admin: 04/27/18 10:14 Dose: 1 cap - Exam Quality Assessment: Supplemental Oxygen General: Obtunded Lungs: Decreased Breath Sounds, Other (agaonal breathing) Cardiovascular: Regular Rate - Problem List & Annotations (1) Comfort measures only status SNOMED Code(s): 56024784918362 Code(s): Z51.5 - ENCOUNTER FOR PALLIATIVE CARE Status: Acute Current Visit: Yes (2) CHF (congestive heart failure) SNOMED Code(s): 35648530 Code(s): I50.9 - HEART FAILURE, UNSPECIFIED Status: Acute Current Visit: Yes Qualifiers: Heart failure chronicity: unspecified (3) Palliative care status SNOMED Code(s): 551289920 Code(s): Z51.5 - ENCOUNTER FOR PALLIATIVE CARE Status: Acute Current Visit: Yes - Problem List Review Problem List Initiated/Reviewed/Updated: Yes - Assessment Assessment:: 1. X-ray report shows possible aspiration so stop Rocephin and Zithromax and start Zosyn and metronidazole IV. 2. I gave some Lasix last day but I'm just hold off and continue to do eyes nose and daily weights. 3. Continue PT/OT. - Plan Plan:: Will continue with comfort measures.I spent 30 min with family at the bedside, answered questions to the best of my knowledge
[2018-04-30] MEDS: Spironolactone 25 MG Tab PO SCH (09:33)
[2018-04-30] MEDS: Diltiazem IR 30 MG Tab PO SCH ×3 (09:34→17:26)
[2018-04-30] MEDS: Tiotropium Inhaler 18 MCG Inhalation Powder Cap Kit of 5 INH SCH (09:34)
[2018-04-30] MEDS: Finasteride 5 MG Tab PO SCH (09:34)
[2018-04-30] MEDS: Apixaban 5 MG Tab PO SCH (09:34)
[2018-04-30] MEDS: Metoprolol Succinate 100 MG Tab.ER PO SCH (09:34)
[2018-04-30] MEDS: Aspirin 81 MG Tab.EC PO SCH (09:34)
[2018-04-30] MEDS: Morphine 2 MG/ML Syringe IVPUSH PRN ×4 (09:48→17:37)
[2018-04-30] MEDS: Sodium Chloride 0.9% 10 ML Syringe FLUSH PRN ×2 (09:49→17:40)
--- NOTE | 2018-05-01 10:32 | DISCH ---
DISCHARGE DATE: 04/30/2018 DATE OF : 04/30/2018 REASON FOR ADMISSION: 1. Atrial fibrillation. 2. Congestive heart failure. 3. Pneumonia. 4. History of asbestosis and chronic inflammatory lung disease. 5. Altered mental status. HISTORY AND COURSE: An 87-year-old male was admitted with shortness of breath, weakness, and confusion. Initially thought to have pneumonia, CHF, and later maybe some pleural effusion thought to be due to the CHF. Initial treatment with Lasix and later with fluids did not help. After discussion with the family, they decided to withdraw care and deescalate. The patient on 04/30/2018, at 1900 hours. I spent more than 35 minutes on the discharge summary. /[id number]
== END 2018-04-30 19:15 | disposition expired | DRG 291 ==
LOC: FB.ED 10:57 → FB.MS 13:11
PROVIDERS: ADMIT Family Medicine; ATTEND Family Medicine
DX: I13.0 Hypertensive heart and chronic kidney disease with heart failure and stage 1 through stage 4 chronic kidney disease, or unspecified chronic kidney disease (principal); J18.9 Pneumonia, unspecified organism; J96.00 Acute respiratory failure, unspecified whether with hypoxia or hypercapnia; I50.22 Chronic systolic (congestive) heart failure; R47.01 Aphasia; N18.3 Chronic kidney disease, stage 3 (moderate); Z51.5 Encounter for palliative care; Z66 Do not resuscitate; E11.22 Type 2 diabetes mellitus with diabetic chronic kidney disease; I25.10 Atherosclerotic heart disease of native coronary artery without angina pectoris; I48.91 Unspecified atrial fibrillation; L98.8 Other specified disorders of the skin and subcutaneous tissue; E86.0 Dehydration; R53.1 Weakness; I25.2 Old myocardial infarction; Z95.5 Presence of coronary angioplasty implant and graft; R39.198 Other difficulties with micturition; J61 Pneumoconiosis due to asbestos and other mineral fibers; N35.919 Unspecified urethral stricture, male, unspecified site; R12 Heartburn; H91.90 Unspecified hearing loss, unspecified ear; Z79.82 Long term (current) use of aspirin; Z79.01 Long term (current) use of anticoagulants; W19.XXXA Unspecified fall, initial encounter; Y92.230 Patient room in hospital as the place of occurrence of the external cause; R41.0 Disorientation, unspecified
CPT/HCPCS: 36415; 70450; 71045; 71046; 80048; 80053; 81001; 82962; 83880; 84484; 85025; 87040; 93005; 97161-GP; 97165-GO; 99285; 99285-25; A9270-GY; J0456; J0696; J1940; J2060; J2270; J2543; J3490; J7030; J7050